=== PATIENT | male | born 1955 | race Hispanic/Latino ===

== ENCOUNTER → 2017-06-17 | Outpatient (CLI) | payer MEDICAID ==
[~2017-06-17] MED LIST: ASPI-555 PO; ATOR20TA65 PO; CLON1TAB5 PO; INSU3INS5 SQ; LISI10TA7 PO; METF500T6 PO; QUETIAPINE PO; TRAZ-187 PO; VENL225T3 PO
== END | disposition home or self-care (01) ==
LOC: RAH 09:06
PROVIDERS: ATTEND Internal Medicine Gastroenterology
DX: K80.20 Calculus of gallbladder without cholecystitis without obstruction (principal); K74.60 Unspecified cirrhosis of liver
CPT/HCPCS: 76700; 93975

== ENCOUNTER → 2017-07-20 | Outpatient (CLI) | payer MEDICAID | END | disposition home or self-care (01) | LOC: RAH 10:32 | PROVIDERS: ATTEND Internal Medicine Gastroenterology | DX: R13.10 Dysphagia, unspecified (principal); R13.0 Aphagia; E11.9 Type 2 diabetes mellitus without complications | CPT/HCPCS: 78264; A9541 ==

== ENCOUNTER 2017-08-31 21:35 | Emergency (ER) | payer MEDICAID ==
[2017-08-31 22:17] LABS: BASOPHILS % (AUTO) 0.5 % (0.0-5.0); EOSINOPHILS % (AUTO) 1.5 % (0.0-8.0); HEMATOCRIT 41.5 % (42-54); LYMPHOCYTES % (AUTO) 19.1 % (21.0-51.0); MEAN CORPUSCULAR HGB CONC 34.3 g/dL (32.0-36.0); MEAN CORPUSCULAR VOLUME 87.6 fL (79-99); MONOCYTES % (AUTO) 5.6 % (3.0-13.0); NEUTROPHILS % (AUTO) 73.3 % (40.0-77.0); PLATELET COUNT (AUTO) 127 K/uL (130-400); RED BLOOD CELL COUNT(AUTO) 4.74 MIL/uL (4.50-6.20); RED CELL DISTRIBUTION WIDTH 14.1 % (11.0-15.5); WHITE BLOOD COUNT (AUTO) 6.8 K/uL (4.8-10.8)
[2017-08-31 22:25] LABS: CARBON DIOXIDE 28 mmol/L (21-32); CHLORIDE 103 mmol/L (101-111); CREATININE 1.4 mg/dL (0.5-1.5); GLOMERULAR FILTR. RATE CALC 55 mL/min (>60); GLUCOSE,RANDOM 144 mg/dL (70-105); POTASSIUM 4.2 mmol/L (3.5-5.1); SODIUM SERUM 141 mmol/L (136-145); UREA NITROGEN, BLOOD 14 mg/dL (7-18)
[2017-08-31 22:37] LABS: ALANINE AMINOTRANSFERASE 57 U/L (12-78); ALBUMIN 4.2 g/dL (3.5-5.0); AMYLASE 108 U/L (25-115); ASPARTATE AMINOTRANSFERASE 40 U/L (10-37); BILIRUBIN,TOTAL 0.4 mg/dL (0.2-1.0); LIPASE 205 U/L (114-286); TOTAL PROTEIN, SERUM 8.8 g/dL (6.0-8.3)
[2017-08-31 22:40] LABS: ALCOHOL, BLOOD < 3 mg/dL (0-10)
[2017-08-31 22:58] LABS: INR 1.04 (0.85-1.15); PARTIAL THROMBOPLASTIN TIME 24.4 SEC (26.3-35.5); PROTHROMBIN TIME 10.9 SEC (9.6-11.6)
[2017-09-01 00:41] LABS: APPEARANCE,URINE Clear (CLEAR); BILIRUBIN,URINE Negative (NEGATIVE); COLOR,URINE Dark Yellow (YELLOW); GLUCOSE, URINE (UA) Negative (NEGATIVE); KETONES,URINE Trace mg/dL (NEGATIVE); LEUKOCYTE ESTERASE ,URINE Negative (NEGATIVE); NITRATE,URINE Negative (NEGATIVE); OCCULT BLOOD,URINE Negative (NEGATIVE); PROTEIN,URINE Negative (NEGATIVE); UROBILINOGEN,URINE 0.2 mg/dL (0.2-1.0)
[2017-09-01 00:48] LABS: AMPHET/METH SCREEN,URINE NEGATIVE (NEGATIVE); BARBITURATE SCREEN, URINE NEGATIVE (NEGATIVE); BENZODIAZEPINES SCREEN,URINE NEGATIVE (NEGATIVE); CANNABINOID SCREEN,URINE NEGATIVE (NEGATIVE); COCAINE SCREEN,URINE NEGATIVE (NEGATIVE); OPIATE SCREEN,URINE NEGATIVE (NEGATIVE); PHENCYCLIDINE SCREEN,URINE NEGATIVE (NEGATIVE)
[2017-09-01 02:41] LABS: CREATINE KINASE MB 4.2 ng/mL (0.5-3.6)
== END 2017-09-01 04:11 | disposition home or self-care (01) ==
LOC: EDH 21:35
DX: I10 Essential (primary) hypertension (principal); E11.9 Type 2 diabetes mellitus without complications; R11.2 Nausea with vomiting, unspecified; F32.9 Major depressive disorder, single episode, unspecified; K74.60 Unspecified cirrhosis of liver
CPT/HCPCS: 36415 ×2; 71045; 80053; 80305; 81003; 82150; 82550 ×2; 82553 ×2; 83690; 84484 ×2; 85025; 85610; 85730; 93005 ×2; 99285; G0480

== ENCOUNTER → 2017-11-23 | Outpatient (CLI) | payer MEDICAID ==
[~2017-11-23] MED LIST changes: +METF-444 PO; -METF500T6 PO
[2017-11-23 09:00] LABS: BASOPHILS % (AUTO) 0.9 % (0.0-5.0); EOSINOPHILS % (AUTO) 7.3 % (0.0-8.0); HEMATOCRIT 36.9 % (42-54); MEAN CORPUSCULAR HEMOGLOBIN 30.7 pg (27.0-33.0); MEAN CORPUSCULAR HGB CONC 34.5 g/dL (32.0-36.0); MONOCYTES % (AUTO) 8.7 % (3.0-13.0); NEUTROPHILS % (AUTO) 58.1 % (40.0-77.0); NUCLEATED RED BLOOD CELLS 0.1 % (0.0-0.19); PLATELET COUNT (AUTO) 104 K/uL (130-400); RED BLOOD CELL COUNT(AUTO) 4.14 MIL/uL (4.50-6.20); RED CELL DISTRIBUTION WIDTH 13.4 % (11.0-15.5); WHITE BLOOD COUNT (AUTO) 5.7 K/uL (4.8-10.8)
[2017-11-23 09:24] LABS: INR 1.04 (0.85-1.15); PROTHROMBIN TIME 10.9 SEC (9.6-11.6)
[2017-11-23 09:32] LABS: ALBUMIN 3.9 g/dL (3.5-5.0); BILIRUBIN,TOTAL 0.4 mg/dL (0.2-1.0); POTASSIUM 3.5 mmol/L (3.5-5.1); TOTAL PROTEIN, SERUM 7.6 g/dL (6.0-8.3)
== END | disposition home or self-care (01) ==
LOC: RAH 08:26
PROVIDERS: ATTEND Internal Medicine Gastroenterology
DX: K80.20 Calculus of gallbladder without cholecystitis without obstruction (principal); N28.1 Cyst of kidney, acquired
CPT/HCPCS: 36415; 76700; 80053; 82105; 85025; 85610

== ENCOUNTER 2018-02-16 05:45 | Day surgery (SDC) | payer MEDICAID ==
[~2018-02-16] VITALS: Ht 165.1 cm; Wt 83.9 kg
[~2018-02-16 05:45] MED LIST changes: +CLON1TAB12 PO; -CLON1TAB5 PO; +FISH1CAP27 PO; +MULT-1203 PO; +PANT40TA25 PO; -QUETIAPINE PO; +SODIUM CHLORIDE 0.9% 1000ML 1,000 ML IV ONE; -VENL225T3 PO
[2018-02-16 06:07] VITALS: BP 104/56
[2018-02-16] MEDS ORDERED: PROPOFOL 10 MG/ML 20ML VIAL IV ONE (07:30)
[2018-02-16 07:39] VITALS: BP 73/47
[2018-02-16 07:45] VITALS: BP 77/47
[2018-02-16 07:50] VITALS: BP 77/39
[2018-02-16 08:02] VITALS: BP 97/60
== END 2018-02-16 08:15 | disposition home or self-care (01) ==
LOC: ENDO 05:45 → DAH 05:45 → ENDO 08:15
PROVIDERS: ATTEND Internal Medicine
DX: K29.50 Unspecified chronic gastritis without bleeding (principal); K31.89 Other diseases of stomach and duodenum; F32.9 Major depressive disorder, single episode, unspecified; E11.9 Type 2 diabetes mellitus without complications; E78.5 Hyperlipidemia, unspecified; L40.9 Psoriasis, unspecified; Z98.890 Other specified postprocedural states; Z68.31 Body mass index [BMI] 31.0-31.9, adult; Z79.899 Other long term (current) drug therapy; K21.0 Gastro-esophageal reflux disease with esophagitis; K70.31 Alcoholic cirrhosis of liver with ascites; I12.9 Hypertensive chronic kidney disease with stage 1 through stage 4 chronic kidney disease, or unspecified chronic kidney disease; E11.22 Type 2 diabetes mellitus with diabetic chronic kidney disease; N18.9 Chronic kidney disease, unspecified; E66.9 Obesity, unspecified
CPT/HCPCS: 43239; 82948; 88305; 88312; A4606; J2704; J7030

== ENCOUNTER → 2018-06-29 | Outpatient (CLI) | payer MEDICAID ==
[~2018-06-29] MED LIST changes: -SODIUM CHLORIDE 0.9% 1000ML 1,000 ML IV ONE
[2018-06-29 08:37] LABS: BASOPHILS % (AUTO) 0.7 % (0.0-5.0); EOSINOPHILS % (AUTO) 7.3 % (0.0-8.0); HEMATOCRIT 38.3 % (42-54); LYMPHOCYTES % (AUTO) 30.3 % (21.0-51.0); MEAN CORPUSCULAR HEMOGLOBIN 30.7 pg (27.0-33.0); MEAN CORPUSCULAR HGB CONC 34.1 g/dL (32.0-36.0); MEAN CORPUSCULAR VOLUME 90.1 fL (79-99); MONOCYTES % (AUTO) 5.8 % (3.0-13.0); NEUTROPHILS % (AUTO) 55.9 % (40.0-77.0); NUCLEATED RED BLOOD CELLS 0.2 % (0.0-0.19); PLATELET COUNT (AUTO) 95 K/uL (130-400); RED BLOOD CELL COUNT(AUTO) 4.24 MIL/uL (4.50-6.20); RED CELL DISTRIBUTION WIDTH 13.3 % (11.0-15.5); WHITE BLOOD COUNT (AUTO) 4.5 K/uL (4.8-10.8)
[2018-06-29 08:51] LABS: INR 1.07 (0.85-1.15); PROTHROMBIN TIME 11.2 SEC (9.6-11.6)
[2018-06-29 08:59] LABS: BILIRUBIN,TOTAL 0.5 mg/dL (0.2-1.0); CREATININE 1.6 mg/dL (0.5-1.5); POTASSIUM 4.4 mmol/L (3.5-5.1); TOTAL PROTEIN, SERUM 7.8 g/dL (6.0-8.3)
== END | disposition home or self-care (01) ==
LOC: RAH 08:12
PROVIDERS: ATTEND Internal Medicine Gastroenterology
DX: K74.60 Unspecified cirrhosis of liver (principal); N28.1 Cyst of kidney, acquired; K80.20 Calculus of gallbladder without cholecystitis without obstruction
CPT/HCPCS: 36415; 76700; 80053; 82105; 85025; 85610

== ENCOUNTER 2018-12-21 19:41 | Emergency (ER) | payer MEDICAID ==
[2018-12-21 20:02] LABS: BASOPHILS % (AUTO) 0.8 % (0.0-5.0); HEMATOCRIT 38.4 % (42-54); LYMPHOCYTES % (AUTO) 32.3 % (21.0-51.0); MEAN CORPUSCULAR HEMOGLOBIN 30.6 pg (27.0-33.0); MEAN CORPUSCULAR HGB CONC 34.3 g/dL (32.0-36.0); MONOCYTES % (AUTO) 7.7 % (3.0-13.0); NEUTROPHILS % (AUTO) 55.2 % (40.0-77.0); PLATELET COUNT (AUTO) 128 K/uL (130-400); RED BLOOD CELL COUNT(AUTO) 4.32 MIL/uL (4.50-6.20); RED CELL DISTRIBUTION WIDTH 13.5 % (11.0-15.5); WHITE BLOOD COUNT (AUTO) 5.2 K/uL (4.8-10.8)
[2018-12-21 20:12] LABS: CREATININE 1.5 mg/dL (0.5-1.5); POTASSIUM 4.2 mmol/L (3.5-5.1)
[2018-12-21 20:17] LABS: ALBUMIN 3.8 g/dL (3.5-5.0); BILIRUBIN,TOTAL 0.4 mg/dL (0.2-1.0)
[2018-12-21 20:18] LABS: ACETAMINOPHEN < 1 mcg/mL (10-29); ALCOHOL, BLOOD < 3 mg/dL (0-10); SALICYLATE < 2.8 mg/dL (2.8-20.0)
[2018-12-21] MEDS ORDERED: ACETAMINOPHEN 325 MG TAB ONE (22:46)
== END 2018-12-22 00:15 | disposition home or self-care (01) ==
LOC: EDH 19:41
DX: T51.91XA Toxic effect of unspecified alcohol, accidental (unintentional), initial encounter (principal); K74.60 Unspecified cirrhosis of liver; F32.9 Major depressive disorder, single episode, unspecified; E11.9 Type 2 diabetes mellitus without complications; I10 Essential (primary) hypertension; Z79.4 Long term (current) use of insulin; Y92.096 Garden or yard of other non-institutional residence as the place of occurrence of the external cause
CPT/HCPCS: 36415; 80053; 85025; 93005; 99285; G0480 ×2; G0481

== ENCOUNTER 2019-02-23 09:57 | Emergency (ER) | payer MEDICAID ==
[2019-02-23] MEDS ORDERED: KETOROLAC TROMETHAMINE 30MG/ML ONE (10:10)
[2019-02-23] MEDS ORDERED: DIAZEPAM 5 MG TABLET ONE (10:11)
== END 2019-02-23 13:25 | disposition home or self-care (01) ==
LOC: EDH 09:57
DX: S16.1XXA Strain of muscle, fascia and tendon at neck level, initial encounter (principal); F32.9 Major depressive disorder, single episode, unspecified; E11.9 Type 2 diabetes mellitus without complications; K74.60 Unspecified cirrhosis of liver; I10 Essential (primary) hypertension; Z79.4 Long term (current) use of insulin; V49.40XA Driver injured in collision with unspecified motor vehicles in traffic accident, initial encounter; Y93.89 Activity, other specified; Y92.89 Other specified places as the place of occurrence of the external cause; Y99.8 Other external cause status
CPT/HCPCS: 70450; 71045; 72125; 72192; 96374; 99284; J1885; 96372

== ENCOUNTER 2020-01-21 09:53 | Emergency (ER) | payer MEDICAID ==
[~2020-01-21 09:53] MED LIST changes: -ASPI-555 PO; +ASPI-556 PO; -PANT40TA25 PO; +PANT40TA54 PO
[2020-01-21] MEDS ORDERED: LIDOCAINE HCL MPF 1% 5ML VIAL ONE (12:50)
== END 2020-01-21 14:22 | disposition home or self-care (01) ==
LOC: EDH 09:53
DX: S61.512A Laceration without foreign body of left wrist, initial encounter (principal); E11.9 Type 2 diabetes mellitus without complications; I10 Essential (primary) hypertension; W26.0XXA Contact with knife, initial encounter; Y93.89 Activity, other specified; Y92.89 Other specified places as the place of occurrence of the external cause; Y99.8 Other external cause status
CPT/HCPCS: 12032; 99284; J3490; 12042

== ENCOUNTER 2022-07-28 07:49 | Emergency (ER) | payer OTHER, MEDICARE ==
[~2022-07-28] VITALS: Ht 165.1 cm; Wt 70.3 kg
[~2022-07-28 07:49] MED LIST changes: -ASPI-556 PO; -ATOR20TA65 PO; +ATOR40TA69 PO; -CLON1TAB12 PO; -FISH1CAP27 PO; +INSU100I13 SQ; +INSU100I54 SQ; -INSU3INS5 SQ; +LAMO150T6 PO; +LISI10TA24 PO; -LISI10TA7 PO; -MULT-1203 PO; -PANT40TA54 PO; +QUET300T2 PO; -TRAZ-187 PO; +VANCO125PO PO
[2022-07-28 08:20] LABS: BASOPHILS % (AUTO) 0.5 % (0.0-5.0); EOSINOPHILS % (AUTO) 3.3 % (0.0-8.0); HEMATOCRIT 34.8 % (42-54); LYMPHOCYTES % (AUTO) 33.6 % (21.0-51.0); MEAN CORPUSCULAR HEMOGLOBIN 30.4 pg (27.0-33.0); MEAN CORPUSCULAR HGB CONC 33.6 g/dL (32.0-36.0); MEAN CORPUSCULAR VOLUME 90.4 fL (79-99); MONOCYTES % (AUTO) 9.7 % (3.0-13.0); NEUTROPHILS % (AUTO) 52.4 % (40.0-77.0); PLATELET COUNT (AUTO) 91 K/uL (130-400); RED BLOOD CELL COUNT(AUTO) 3.85 MIL/uL (4.50-6.20); RED CELL DISTRIBUTION WIDTH 12.1 % (11.0-15.5); WHITE BLOOD COUNT (AUTO) 5.7 K/uL (4.8-10.8)
[2022-07-28 08:29] LABS: CREATININE 1.2 mg/dL (0.5-1.5); POTASSIUM 3.8 mmol/L (3.5-5.1)
[2022-07-28 08:43] LABS: ALBUMIN 3.5 g/dL (3.5-5.0); TOTAL PROTEIN, SERUM 6.5 g/dL (6.0-8.3)
[2022-07-28] MEDS ORDERED: IOHEXOL-350 75 ML VIAL IV ONE (10:58)
[2022-07-28] MEDS ORDERED: ACETAMINOPHEN 325 MG TAB PO ONE (11:00)
[2022-07-28] MEDS ORDERED: LIDOCAINE 5% TOPICAL PATCH TP ONE (11:00)
[2022-07-28 11:27] LABS: APPEARANCE,URINE CLEAR (CLEAR); BILIRUBIN,URINE NEGATIVE (NEGATIVE); COLOR,URINE YELLOW (YELLOW); GLUCOSE, URINE (UA) 70 mg/dL (NEGATIVE); KETONES,URINE NEGATIVE (NEGATIVE); LEUKOCYTE ESTERASE ,URINE NEGATIVE Leu/uL (NEGATIVE); NITRATE,URINE NEGATIVE (NEGATIVE); OCCULT BLOOD,URINE NEGATIVE (NEGATIVE); PH,URINE 5.5 (5.0-8.0); PROTEIN,URINE NEGATIVE (NEGATIVE); UROBILINOGEN,URINE 0.2 mg/dL (0.2-1.0)
[2022-07-28 11:36] LABS: SQUAMOUS EPITHELIAL CELL,UR RARE /HPF (0-2)
[2022-07-28] MEDS ORDERED: LIDOP TD (13:03)
[2022-07-28 13:40] VITALS: BP 132/72
== END 2022-07-28 13:50 | disposition home or self-care (01) ==
LOC: EDH 07:49
DX: S20.212A Contusion of left front wall of thorax, initial encounter (principal); K74.60 Unspecified cirrhosis of liver; E86.0 Dehydration; E11.65 Type 2 diabetes mellitus with hyperglycemia; E78.00 Pure hypercholesterolemia, unspecified; I10 Essential (primary) hypertension; Z79.899 Other long term (current) drug therapy; W18.39XA Other fall on same level, initial encounter; Y93.89 Activity, other specified; Y92.89 Other specified places as the place of occurrence of the external cause; Y99.8 Other external cause status
CPT/HCPCS: 99285; 70450; 71045; 84484; 80053; 82140; 85025; 81001; 36415; 71100; 73030; 74177; 93005; Q9967

== ENCOUNTER 2022-12-26 09:21 | Emergency (ER) | payer OTHER, MEDICARE ==
[~2022-12-26] VITALS: Ht 162.6 cm; Wt 81.6 kg
[~2022-12-26 09:21] MED LIST changes: +LIDOP TD
[2022-12-26] MEDS ORDERED: KETOROLAC 60 MG VIAL (30MG/ML) IM ONE (09:36)
[2022-12-26] MEDS ORDERED: KETOROLAC 30MG VIAL (30MG/ML) IVP ONE (10:00)
[2022-12-26 11:09] VITALS: BP 121/60; PULSE 60; RESP 18; O2SAT 96
== END 2022-12-26 11:20 | disposition home or self-care (01) ==
LOC: EDH 09:21
DX: S80.12XA Contusion of left lower leg, initial encounter (principal); S40.012A Contusion of left shoulder, initial encounter; I10 Essential (primary) hypertension; E11.9 Type 2 diabetes mellitus without complications; Z79.84 Long term (current) use of oral hypoglycemic drugs; Z79.899 Other long term (current) drug therapy; Z98.890 Other specified postprocedural states; V89.2XXA Person injured in unspecified motor-vehicle accident, traffic, initial encounter; Y93.I9 Activity, other involving external motion; Y92.488 Other paved roadways as the place of occurrence of the external cause; Y99.8 Other external cause status
CPT/HCPCS: 99284; 96374; 71045; 73552; 72170; 73030; J1885

== ENCOUNTER 2023-03-17 16:18 | Emergency (ER) | payer MEDICARE, OTHER ==
[~2023-03-17] VITALS: Ht 162.6 cm; Wt 81.6 kg
[2023-03-17 17:50] VITALS: BP 149/70; PULSE 69; RESP 20
[2023-03-17] MEDS ORDERED: IBUPROFEN 600 MG TABLET PO ONE (18:00)
[2023-03-17] MEDS ORDERED: IBUP-2070 PO (20:28)
[2023-03-17] MEDS ORDERED: CEPH500B PO (20:28)
[2023-03-17] MEDS ORDERED: CEPHALEXIN 500 MG CAPSULE PO ONE (20:30)
[2023-03-17] MEDS ORDERED: TETANUS/DIPHTHERIA TOXOID [ADULT] 0.5 ML VIAL IM ONE (20:30)
== END 2023-03-18 01:08 | disposition home or self-care (01) ==
LOC: EDH 16:18
DX: S62.667B Nondisplaced fracture of distal phalanx of left little finger, initial encounter for open fracture (principal); E11.9 Type 2 diabetes mellitus without complications; I10 Essential (primary) hypertension; Z79.899 Other long term (current) drug therapy; X58.XXXA Exposure to other specified factors, initial encounter; Y93.89 Activity, other specified; Y92.89 Other specified places as the place of occurrence of the external cause; Y99.8 Other external cause status
CPT/HCPCS: 12001; 29130; 73130

== ENCOUNTER → 2023-04-09 | Outpatient (CLI) | payer OTHER ==
[~2023-04-09] MED LIST changes: +CEPH500B PO; +IBUP-2070 PO; +LIDOCAINE HCL 4% LTA SOL 4 ML VIAL TP ONE
== END | disposition home or self-care (01) ==
LOC: WHH 09:33
PROVIDERS: ATTEND Nurse Practitioner Family
DX: S61.307A Unspecified open wound of left little finger with damage to nail, initial encounter (principal); S62.637A Displaced fracture of distal phalanx of left little finger, initial encounter for closed fracture; E11.52 Type 2 diabetes mellitus with diabetic peripheral angiopathy with gangrene; I96 Gangrene, not elsewhere classified; I10 Essential (primary) hypertension; E78.5 Hyperlipidemia, unspecified; M79.642 Pain in left hand; F32.A Depression, unspecified; Z79.899 Other long term (current) drug therapy; X58.XXXA Exposure to other specified factors, initial encounter; Y93.89 Activity, other specified; Y92.89 Other specified places as the place of occurrence of the external cause; Y99.8 Other external cause status
CPT/HCPCS: G0463; A4450

== ENCOUNTER → 2023-04-23 | Outpatient (CLI) | payer OTHER | END | disposition home or self-care (01) | LOC: WHH 09:07 | PROVIDERS: ATTEND Nurse Practitioner Family | DX: S61.307D Unspecified open wound of left little finger with damage to nail, subsequent encounter (principal); S62.637D Displaced fracture of distal phalanx of left little finger, subsequent encounter for fracture with routine healing; E11.622 Type 2 diabetes mellitus with other skin ulcer; L98.491 Non-pressure chronic ulcer of skin of other sites limited to breakdown of skin; E11.52 Type 2 diabetes mellitus with diabetic peripheral angiopathy with gangrene; I96 Gangrene, not elsewhere classified; I10 Essential (primary) hypertension; E78.5 Hyperlipidemia, unspecified; M79.642 Pain in left hand; H91.90 Unspecified hearing loss, unspecified ear; F32.A Depression, unspecified; Z79.899 Other long term (current) drug therapy; X58.XXXD Exposure to other specified factors, subsequent encounter | CPT/HCPCS: G0463 ==

== ENCOUNTER → 2023-04-30 | Outpatient (CLI) | payer OTHER ==
[~2023-04-30] MED LIST changes: -LIDOCAINE HCL 4% LTA SOL 4 ML VIAL TP ONE
== END | disposition home or self-care (01) ==
LOC: WHH 09:54
PROVIDERS: ATTEND Nurse Practitioner Family
DX: S61.307D Unspecified open wound of left little finger with damage to nail, subsequent encounter (principal); S62.637D Displaced fracture of distal phalanx of left little finger, subsequent encounter for fracture with routine healing; E11.622 Type 2 diabetes mellitus with other skin ulcer; L98.491 Non-pressure chronic ulcer of skin of other sites limited to breakdown of skin; E11.52 Type 2 diabetes mellitus with diabetic peripheral angiopathy with gangrene; I96 Gangrene, not elsewhere classified; I10 Essential (primary) hypertension; E78.5 Hyperlipidemia, unspecified; H91.90 Unspecified hearing loss, unspecified ear; M79.642 Pain in left hand; F32.A Depression, unspecified; Z79.899 Other long term (current) drug therapy; X78.8XXD Intentional self-harm by other sharp object, subsequent encounter
CPT/HCPCS: G0463

== ENCOUNTER → 2023-05-14 | Outpatient (CLI) | payer OTHER | END | disposition home or self-care (01) | LOC: WHH 10:12 | PROVIDERS: ATTEND Nurse Practitioner Family | DX: S61.307D Unspecified open wound of left little finger with damage to nail, subsequent encounter (principal); S62.637D Displaced fracture of distal phalanx of left little finger, subsequent encounter for fracture with routine healing; E11.622 Type 2 diabetes mellitus with other skin ulcer; L98.491 Non-pressure chronic ulcer of skin of other sites limited to breakdown of skin; E11.52 Type 2 diabetes mellitus with diabetic peripheral angiopathy with gangrene; I96 Gangrene, not elsewhere classified; I10 Essential (primary) hypertension; E78.5 Hyperlipidemia, unspecified; H91.90 Unspecified hearing loss, unspecified ear; M79.642 Pain in left hand; F32.A Depression, unspecified; Z79.899 Other long term (current) drug therapy; X78.8XXD Intentional self-harm by other sharp object, subsequent encounter | CPT/HCPCS: G0463 ==

== ENCOUNTER → 2023-05-15 | Outpatient (CLI) | payer OTHER | END | disposition home or self-care (01) | LOC: RAH 09:32 | PROVIDERS: ATTEND Nurse Practitioner Family | DX: S61.301A Unspecified open wound of left index finger with damage to nail, initial encounter (principal); M86.8X4 Other osteomyelitis, hand; X58.XXXA Exposure to other specified factors, initial encounter; Y93.89 Activity, other specified; Y92.89 Other specified places as the place of occurrence of the external cause; Y99.8 Other external cause status | CPT/HCPCS: 73218 ==

== ENCOUNTER 2024-10-27 19:23 | Emergency (ER) | payer OTHER, MEDICARE ==
[~2024-10-27] VITALS: Ht 160 cm; Wt 81.6 kg
[~2024-10-27 19:23] MED LIST changes: +IBUP-1492 PO; -IBUP-2070 PO
--- NOTE | 2024-10-27 19:27 | NUR ---
UA CUP PROVIDED
--- NOTE | 2024-10-27 19:59 | EKG ---
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
[2024-10-27 20:15] LABS: IMMATURE GRANULOCYTE ABSOLUTE 0.02 K/uL (0-1); NUCLEATED RED BLOOD CELLS 0.0 % (0.0-0.19); PLATELET COUNT (AUTO) 136 K/uL (130-400); RED BLOOD CELL COUNT(AUTO) 4.46 MIL/uL (4.50-6.20); RED CELL DISTRIBUTION WIDTH 12.5 % (11.0-15.5); WHITE BLOOD COUNT (AUTO) 4.9 K/uL (4.8-10.8)
[2024-10-27 20:25] LABS: CREATININE 1.2 mg/dL (0.5-1.3); GLOMERULAR FILTR. RATE CALC 66 mL/min (>90); GLUCOSE,RANDOM 175 mg/dL (70-105); SODIUM SERUM 140 mmol/L (136-145); UREA NITROGEN, BLOOD 41 mg/dL (7-18)
[2024-10-27 20:50] LABS: CREATINE KINASE, TOTAL 1380 U/L (21-232)
--- NOTE | 2024-10-27 21:56 | NUR ---
BLADDER SCAN POST VOID 24CC, MD AWARE
[2024-10-27 22:02] LABS: APPEARANCE,URINE CLEAR (CLEAR); GLUCOSE, URINE (UA) NEGATIVE (NEGATIVE); LEUKOCYTE ESTERASE ,URINE NEGATIVE Leu/uL (NEGATIVE); NITRATE,URINE NEGATIVE (NEGATIVE); OCCULT BLOOD,URINE NEGATIVE (NEGATIVE)
[2024-10-27 22:05] LABS: ADD UA MICROSCOPIC NO
[2024-10-27 22:06] LABS: SQUAMOUS EPITHELIAL CELL,UR RARE /HPF (0-2)
[2024-10-27] MEDS: 0.9% NACL 250ML 250 ML IV SCH (22:07)
--- NOTE | 2024-10-27 22:12 | ERN ---
ED Note History of Present Illness Stated Complaint: URINARY RETENTION, VOMITING Chief Complaint: Multiple Complaints Time Seen by MD: 19:27 Dictation: This is a 69-year-old male who presented to the emergency room complaining of bloating and emesis. Apparently patient began experiencing bloating since 10/26/2024 and yesterday he stayed outside all day and he started vomitings today so far had 2 episodes. No abdominal pain no diarrhea no fever chills or rigors. Although he complained of urinary retention initially he voided without any difficulty. Post vital bladder scan at bedside showed only 20 cc of urine. No hematuria dysuria. Patient and daughter denied any alcohol intake and he has been sober for more than 5 years. No travel no other sick contacts. Temperature 98.3 pulse 83 respirations 18 blood pressure 120/70 with a pulse oximetry of 97% on room air Chronic medical problems include diabetes mellitus, hypercholesterolemia, hypertension and cirrhosis of the liver Allergies: Coded Allergies: No Known Drug Allergies (Verified Allergy, Unknown, 12/26/15) Home Meds Active Scripts Ibuprofen (Ibuprofen) 600 Mg Tablet, 600 MG PO Q6H PRN for PAIN, #30 TAB Prov:JENNIFER COOK AUT[employer] CLUTCH REBUILDER 03/17/23 Cephalexin Monohydrate (Keflex) 500 Mg Cap, 500 MG PO TID for 5 Days, #15 CAP Prov:JENNIFER COOK AUT[employer] CLUTCH REBUILDER 03/17/23 Lidocaine (Lidoderm Patch 5%) 1 Patch Patch, 1 PATCH TD DAILY for 30 Days, #30 ADH.PATCH 0 Refills Prov:STEVIE TORRES MD 07/28/22 Vancomycin HCl (Vancocin Oral Soln 125 mg) 50 Mg/Ml Soln, 125 MG PO Q6H for 3 Days, #1500 ML 0 Refills Prov:KEREN HINES MD 12/01/21 Reported Medications Insulin NPL/Insulin Lispro (Humalog Mix 75-25 Kwikpen) 100 Unit/1 Ml Insuln.pen, 12 UNITS SQ DAILYDINNER 11/28/21 Insulin Lispro Protamin/Lispro (Insulin Lispro Mix 75-25 Kwkpn) 100 Unit/1 Ml Insuln.pen, 25 UNIT SQ DAILYBKFST 11/28/21 Atorvastatin Calcium (LIPITOR) 40 Mg Tablet, 40 MG PO DAILY, TAB 9/16/22 Lamotrigine (Lamotrigine) 150 Mg Tablet, 300 MG PO DAILY, TAB 11/22/21 Quetiapine Fumarate (Seroquel) 300 Mg Tab, 300 MG PO HS, TAB 11/22/21 Lisinopril (Lisinopril) 10 Mg Tablet, 10 MG PO AM, TAB 12/26/15 Metformin HCl (Metformin HCl) 500 Mg Tablet, 500 MG PO BIDAC, TAB 12/26/15 Past Medical History Past Medical History: Diabetes-Type II, High Cholesterol, Hypertension Additional Past Medical Hx: CHIRROSIS, SEPSIS Surgical History: Other Surgical History Other: RIGHT SHOULDER Family History: Negative Social History: Negative, Lives with family RN Note Reviewed/Agreed w/PFSH: Yes Review of System Dictation Constitutional: Negative for fever,chills, and weight loss Eyes: Negative for injury, pain,redness, and discharge ENT: Negative for injury,pain or swelling Cardiovascular: Negative for chest pain, palpitations, and edema Respiratory: Negative for shortness of breath, cough, and wheezing, Abdomen/GI: Negative for abdominal pain, nausea, positive for vomiting, denied diarrhea, and constipation Back: Negative for injury and pain : Negative for injury, bleeding and discharge positive for urinary difficulty MS/Extremity: Negative for injury and deformity Skin: Negative for rash, and discoloration Neuro: Negative for headache, weakness, numbness, tingling, and seizure Psych: Negative for suicide ideation, homicidal ideation, and hallucinations Initial Vital Sign VS Vital Signs Date Time Temp Pulse Resp B/P (MAP) Pulse Ox O2 Delivery O2 Flow Rate FiO2 10/27/24 19:25 98.2 83 18 120/70 97 Room Air 10/27/24 21:40 0 21 Physical Exam Dictation General: awake, alert, NAD Head/Face: Normocephalic, atraumatic Eyes: PERRL, EOMI, vision at baseline ENT: oral cavity clear, TMs clear, no signs of infection Neck: Trachea midline, supple, no nuchal rigidity Cardiovascular: RRR, normal S1/S2, No MRGs, no JVD Respiratory: CTAB, no respiratory distress, No rales or wheezes Abdomen: Soft, non-tender, non-distended, normal bowel sounds, no guarding or rebound. Skin: Warm, dry, normal turgor, no rash MS/Extremity: Pulses equal, no cyanosis, neurovascular intact, FROM Neuro: COAx4, GCS 15, strength 5/5, CN 2-12 intact, normal cerebellar exam, normal gait, Psych: Normal behavior, mood, and affect normal Extremities-trace edema without any palpable cords, Homans sign is negative Results (Laboratory/Radiology) Laboratory/Radiology Laboratory Tests Test 10/27/24 20:05 10/27/24 21:43 White Blood Count 4.9 K/uL (4.8-10.8) Red Blood Count 4.46 MIL/uL (4.50-6.20) L Hemoglobin 13.2 g/dL (14.0-18.0) L Hematocrit 38.4 % (42-54) L Mean Corpuscular Volume 86.1 fL (79-99) Mean Corpuscular Hemoglobin 29.6 pg (27.0-33.0) Mean Corpuscular Hemoglobin Concent 34.4 g/dL (32.0-36.0) Red Cell Distribution Width 12.5 % (11.0-15.5) Platelet Count 136 K/uL (130-400) Mean Platelet Volume 10.2 fL (7.5-10.5) Immature Granulocyte % (Auto) 0.4 % (0-1) Neutrophils (%) (Auto) 70.4 % (40.0-77.0) Lymphocytes (%) (Auto) 17.0 % (21.0-51.0) L Monocytes (%) (Auto) 10.4 % (3.0-13.0) Eosinophils (%) (Auto) 1.4 % (0.0-8.0) Basophils (%) (Auto) 0.4 % (0.0-5.0) Neutrophils # (Auto) 3.4 K/uL (1.8-7.7) Lymphocytes # (Auto) 0.8 K/uL (1.0-4.8) L Monocytes # (Auto) 0.5 K/uL (0.1-1.0) Eosinophils # (Auto) 0.07 K/uL (0.00-0.70) Basophils # (Auto) 0.02 K/uL (0.00-0.20) Absolute Immature Granulocyte (auto 0.02 K/uL (0-1) Nucleated Red Blood Cells 0.0 % (0.0-0.19) Sodium Level 140 mmol/L (136-145) Potassium Level 3.4 mmol/L (3.5-5.1) L Chloride Level 102 mmol/L (101-111) Carbon Dioxide Level 33 mmol/L (21-32) H Blood Urea Nitrogen 41 mg/dL (7-18) H Creatinine 1.2 mg/dL (0.5-1.3) Glomerular Filtration Rate Calc 66 mL/min (>90) Random Glucose 175 mg/dL (70-105) H Total Calcium 8.6 mg/dL (8.5-10.1) Ammonia < 10 umol/L (11-32) L Total Creatine Kinase 1380 U/L (21-232) #*H Troponin I High Sensitivity 11 ng/L (4-75) Lipase 190 U/L (16-77) H Urine Color YELLOW (YELLOW) Urine Appearance CLEAR (CLEAR) Urine pH 5.5 (5.0-8.0) Urine Specific [place] 1.029 (1.001-1.031) Urine Protein 10 mg/dL (NEGATIVE) H Urine Glucose (UA) NEGATIVE mg/dL (NEGATIVE) Urine Ketones NEGATIVE mg/dL (NEGATIVE) Urine Occult Blood NEGATIVE (NEGATIVE) Urine Nitrate NEGATIVE (NEGATIVE) Urine Bilirubin NEGATIVE mg/dL (NEGATIVE) Urine Urobilinogen 0.2 mg/dL (0.2-1.0) Urine Leukocyte Esterase NEGATIVE Laila/uL Urine RBC 2-5 /HPF (0-1) H Urine WBC 0-1 /HPF (0-1) Urine Squamous Epithelial Cells RARE /HPF (0-2) Urine Bacteria None /HPF (None Seen) Urine Hyaline Casts 2-5 /LPF (0-1 /LPF) H Labs Reviewed?: Yes ED Course ED Course Orders Procedure Category Date Status Time Cbc With Differential LAB 10/27/24 Complete 19:27 Basic Metabolic Panel LAB 10/27/24 Complete 19:27 Troponin I High LAB 10/27/24 Complete Sensitivity 19:27 Creatine Kinase, Total LAB 10/27/24 Complete 19:27 12 Lead Ekg Tracing- EKG 10/27/24 Complete Technical 19:27 Urinalysis Profile LAB 10/27/24 Complete 19:27 Bladder Scan CPOE 10/27/24 Transmitted 19:34 Ondansetron 4mg Inj PHA 10/27/24 In Process (Zofran 4mg Inj) 20:00 0.9% Nacl 250ml (Ns PHA 10/27/24 In Process 250ml) 20:00 Ammonia LAB 10/27/24 Complete 20:05 Lipase LAB 10/27/24 Complete 20:05 0.9% Nacl 500ml PHA 10/27/24 In Process Iv.Soln (Ns 500ml 22:30 Potassium Bicarb/Cit PHA 10/27/24 Complete Ac 25meq (K-Lyte Ta 23:00 Current Medications Medications (Trade) Dose Ordered Sig/Venkat Route PRN Reason Start Time Stop Time Status Last Admin Dose Admin Ondansetron HCl (zoFRAN 4MG INJ) 4 mg ONCE IVP 10/27/24 20:00 10/27/24 23:59 10/27/24 22:06 Potassium Bicarbonate (K-Lyte Tablet Eff 25 Meq Tablet.eff) 25 meq ONCE ONCE PO 10/27/24 23:00 10/27/24 23:01 DC 10/27/24 23:01 Sodium Chloride 250 ml @ 0 mls/hr ONCE IV 10/27/24 20:00 10/28/24 19:59 10/27/24 22:07 Sodium Chloride 500 ml @ 0 mls/hr Q0M IV 10/27/24 22:30 11/26/24 22:29 10/27/24 22:21 Vital Signs Date Time Temp Pulse Resp B/P (MAP) Pulse Ox O2 Delivery O2 Flow Rate FiO2 10/27/24 21:40 98.2 83 18 120/70 97 Room Air* 0 21 10/27/24 19:25 98.2 83 18 120/70 97 Room Air We will perform diagnostic labs, and administer medications according to the patient's complaint. Once the results are available, will review and personally interpreted the labs to rule out any acute life-threatening emergency the trach require immediate intervention and treatment. I will then re-evaluate the patient after treatment and diagnostic exams have return to determine whether the patient requires any further testing, can safely be discharged home or need further admission to hospital for additional treatment and evaluation. Labs reviewed CBC is with a normal limits BNP 7 is significant for a potassium of 3.4 BUN and creatinine are 41 and 1.2 with a glucose of 175 lipase is 190 total CK 1380. Medical Decision Making MDM Differential diagnosis: Heat stroke, heat exhaustion, viral syndrome, sepsis with a UTI, gastroenteritis Rationale: Tests considered and ordered secondary to shared decision making include: Previous outside records reviewed: Old ER visits. Risk of complication and/or morbidity or mortality of patient management: None Medications-Per medication reconciliation Need for hospitalization: Patient does not meet criteria for hospitalization. Need for emergency major/minor surgery: No There are no social concerns with this patient. Prescription drug management Prescriptions will include symptomatic care Patient's prior external medical records from other ER visits were reviewed by me as indicated. Prior testing and results from previous visits were reviewed. Prior tests were taken into account with medical decision making and resource utilization, independent historian/historians were used to obtain complete m edical history. I independently interpreted the test that were performed, results were reviewed by me and considered findings on radiology if ordered. Medical management and examination interpretation discussions were had by me with other qualified healthcare professionals as indicated for the patient's care. DX & DISP Disposition: Discharge Departure Impression: Primary Impression: Exertional heat stroke Additional Impressions: Mild dehydration, Non-traumatic rhabdomyolysis, Acute kidney injury, Hypokalemia, Cirrhosis of liver, Hyperglycemia due to diabetes mellitus, Pancreatitis Condition: Stable Additional Instructions: Patient and the caregiver have been informed of all the diagnostic tests and the imaging conducted during the today's visit to the emergency room and has verbalized understanding of the results I have personally reviewed and inter preted all diagnostic exams performed here in the ER today as well as the vital signs documented by the nursing staff. The patient is now being discharged to home and should follow up with the primary care physician or the specialist as directed by the ER staff. Follow-up with primary care provider in 1 to 2 days. Take medications as directed here in the emergency room. Okay to continue home medications unless otherwise discussed during your visit in the emergency room today. Return to your nearest emergency room if symptoms worsen or if there is no improvement. Call 911 if you need immediate assistance. Take Tylenol or Motrin [id number] as needed and if no contraindications are present. Increase oral hydration. A wound culture or urine culture was ordered here in the emergency room department please follow-up with primary care provider and advise them to get repeat ports from our facility. If you had any Mahin wrap/splints that were applied here, please do not remove them until you see your primary care or specialty. Counseled on aggressive hydration patient and daughter verbalized that they have Powerade Gatorade and that they will continue aggressive fluids at home Referrals: DEON LIU MD (PCP) MONICA THOMAS MD Oct 27, 2024 22:12
[2024-10-27] MEDS: 0.9% NACL 500ML IV.SOLN 500 ML IV SCH (22:21)
[2024-10-27 23:47] VITALS: BP 124/73; PULSE 80; RESP 18; TEMP 97.8; O2SAT 97
== END 2024-10-27 23:48 | disposition home or self-care (01) ==
LOC: EDH 19:23
DX: T67.02XA Exertional heatstroke, initial encounter (principal); E86.0 Dehydration; M62.82 Rhabdomyolysis; E87.6 Hypokalemia; N17.9 Acute kidney failure, unspecified; E11.65 Type 2 diabetes mellitus with hyperglycemia; K85.90 Acute pancreatitis without necrosis or infection, unspecified; E78.00 Pure hypercholesterolemia, unspecified; I10 Essential (primary) hypertension; Z79.899 Other long term (current) drug therapy
CPT/HCPCS: 99284; 96374; 51798; 82550; 84484; 80048; 82140; 83690; 85025; 81003; 36415; 93005; J7040; J2405; J7050

== ENCOUNTER 2024-11-08 13:01 | Emergency (ER) | payer OTHER, MEDICARE ==
[~2024-11-08] VITALS: Ht 162.6 cm; Wt 81.6 kg
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
[2024-11-08] MEDS ORDERED: BACL10TA PO (15:18)
[2024-11-08] MEDS ORDERED: KETO10TA2 PO (15:18)
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
[2024-11-08 15:36] VITALS: BP 115/84; PULSE 65; RESP 18; TEMP 98.6; O2SAT 97
== END 2024-11-08 15:37 | disposition home or self-care (01) ==
LOC: EDH 13:01
DX: S16.1XXA Strain of muscle, fascia and tendon at neck level, initial encounter (principal); E10.9 Type 1 diabetes mellitus without complications; I10 Essential (primary) hypertension; Z79.899 Other long term (current) drug therapy; V89.2XXA Person injured in unspecified motor-vehicle accident, traffic, initial encounter; Y93.89 Activity, other specified; Y92.89 Other specified places as the place of occurrence of the external cause; Y99.8 Other external cause status
CPT/HCPCS: 70450; 72125; 72128; 72131; 99284

== ENCOUNTER 2025-02-28 19:49 | Observation (INO) | payer OTHER, MEDICARE ==
[~2025-02-28] VITALS: Ht 157.5 cm; Wt 84.7 kg
[~2025-02-28 19:49] MED LIST changes: +BACL10TA PO; +KETO10TA2 PO
[2025-02-28 21:16] LABS: IMMATURE GRANULOCYTE ABSOLUTE 0.02 K/uL (0-1); NUCLEATED RED BLOOD CELLS 0.0 % (0.0-0.19); PLATELET COUNT (AUTO) 209 K/uL (130-400); RED BLOOD CELL COUNT(AUTO) 2.59 MIL/uL (4.50-6.20); RED CELL DISTRIBUTION WIDTH 13.6 % (11.0-15.5); WHITE BLOOD COUNT (AUTO) 6.3 K/uL (4.8-10.8)
[2025-02-28 21:24] LABS: CREATININE 1.3 mg/dL (0.5-1.3); GLOMERULAR FILTR. RATE CALC 59.0 mL/min (>90); GLUCOSE,RANDOM 231.0 mg/dL (70-105); SODIUM SERUM 140.0 mmol/L (136-145); UREA NITROGEN, BLOOD 22.0 mg/dL (7-18)
[2025-02-28 21:29] LABS: CREATINE KINASE, TOTAL 143.0 U/L (21-232)
--- NOTE | 2025-02-28 21:46 | ERN ---
ED Note History of Present Illness Stated Complaint: CHEST PAIN, AND SOB ON EXERTION APPROX A WEEK AGO. Chief Complaint: Chest Pain Time Seen by MD: 20:00 Dictation: This is a 70-year-old obese male who presented to the emergency room as a referral from Dr. Martinez's office to be evaluated for increased D-dimers and some shortness of breath. The patient underwent a right total shoulder arthroplasty on 02/17/2025 at [facility] by Dr. Steen. He had a follow- up appointment with Dr. Martinez today and reported to him that he was a little short of breath for the past 1 week and nonspecific chest discomfort. The daughter who was at bedside also reported that after patient received Tylenol No. 3 for his right shoulder pain he could not sleep and became extremely confused every single time. He stopped giving the pain medication for his right shoulder. No fever chills or rigors Temperature 98.5 pulse 79 respirations 18 blood pressure 128/61 with a pulse oximetry of 99% on room air His chronic medical problems include diabetes mellitus type 2, hypertension, history of liver disease, peripheral arterial disease, hypercholesterolemia, osteoarthritis and previous history of left shoulder surgery Allergies: Coded Allergies: No Known Drug Allergies (Verified Allergy, Unknown, 12/26/15) Home Meds Active Scripts Ketorolac Tromethamine (Ketorolac Tromethamine) 10 Mg Tablet, 1 TAB PO BID for pain for 3 Days, #6 TAB 0 Refills Prov:TIAN JO [facility] 11/08/24 Baclofen (Baclofen) 10 Mg Tablet, 1 TAB PO BID for 5 Days, #10 TAB 0 Refills Prov:TIAN JO [facility] 11/08/24 Ibuprofen (Ibuprofen) 600 Mg Tablet, 600 MG PO Q6H PRN for PAIN, #30 TAB Prov:JENNIFER COOK BELLY DANCER 03/17/23 Cephalexin Monohydrate (Keflex) 500 Mg Cap, 500 MG PO TID for 5 Days, #15 CAP Prov:JENNIFER COOK BELLY DANCER 03/17/23 Lidocaine (Lidoderm Patch 5%) 1 Patch Patch, 1 PATCH TD DAILY for 30 Days, #30 ADH.PATCH 0 Refills Prov:STEVIE TORRES MD 07/28/22 Vancomycin HCl (Vancocin Oral Soln 125 mg) 50 Mg/Ml Soln, 125 MG PO Q6H for 3 Days, #1500 ML 0 Refills Prov:KEREN HINES MD 12/01/21 Reported Medications Insulin NPL/Insulin Lispro (Humalog Mix 75-25 Kwikpen) 100 Unit/1 Ml Insuln.pen, 12 UNITS SQ DAILYDINNER 11/28/21 Insulin Lispro Protamin/Lispro (Insulin Lispro Mix 75-25 Kwkpn) 100 Unit/1 Ml Insuln.pen, 25 UNIT SQ DAILYBKFST 11/28/21 Atorvastatin Calcium (LIPITOR) 40 Mg Tablet, 40 MG PO DAILY, TAB 11/22/21 Lamotrigine (Lamotrigine) 150 Mg Tablet, 300 MG PO DAILY, TAB 11/22/21 Quetiapine Fumarate (Seroquel) 300 Mg Tab, 300 MG PO HS, TAB 11/22/21 Lisinopril (Lisinopril) 10 Mg Tablet, 10 MG PO AM, TAB 12/26/15 Metformin HCl (Metformin HCl) 500 Mg Tablet, 500 MG PO BIDAC, TAB 12/26/15 Past Medical History Past Medical History: Diabetes-Type II, Hypertension, Liver Disease, Vascular Disease, Other Additional Past Medical Hx: DIZZINESS, SOB ON EXERTION, PAD, DYSLIPIDEMIA. ARTHRITIS Surgical History: Other Surgical History Other: R TOTAL SHOULDER REPLACEMENT LAST Feb, L SHOULDER SURGERY YRS AGO Family History: Negative Social History: Negative, Lives with family RN Note Reviewed/Agreed w/PFSH: Yes Review of System Dictation Constitutional: Negative for fever,chills, and weight loss Eyes: Negative for injury, pain,redness, and discharge ENT: Negative for injury,pain or swelling Cardiovascular: Positive for chest discomfort, palpitations only when walking, Respiratory: Positive for shortness of breath, denied cough, and wheezing, Abdomen/GI: Negative for abdominal pain, nausea, vomiting, diarrhea, and constipation Back: Negative for injury and pain : Negative for injury, bleeding and discharge MS/Extremity: Negative for injury and deformity Skin: Negative for rash, and discoloration Neuro: Negative for headache, weakness, numbness, tingling, and seizure Psych: Negative for suicide ideation, homicidal ideation, and hallucinations Initial Vital Sign VS Vital Signs Date Time Temp Pulse Resp B/P (MAP) Pulse Ox O2 Delivery O2 Flow Rate FiO2 02/28/25 19:58 98.4 79 18 128/61 99 Room Air 0 02/28/25 22:00 21 Physical Exam Dictation General: awake, alert, NAD elderly male right shoulder sling in place Head/Face: Normocephalic, atraumatic Eyes: PERRL, EOMI, vision at baseline ENT: oral cavity clear, TMs clear, no signs of infection Neck: Trachea midline, supple, no nuchal rigidity Cardiovascular: RRR, normal S1/S2, No MRGs, no JVD Respiratory: CTAB, no respiratory distress, No rales or wheezes Abdomen: Soft, non-tender, non-distended, normal bowel sounds, no guarding or rebound. Skin: Warm, dry, normal turgor, no rash MS/Extremity: Pulses equal, no cyanosis, neurovascular intact, FROM Neuro: COAx4, GCS 15, strength 5/5, CN 2-12 intact, normal cerebellar exam, normal gait, Psych: Normal behavior, mood, and affect normal Extremities-trace edema without any palpable cords, Homans sign is negative Results (Laboratory/Radiology) Laboratory/Radiology Laboratory Tests Test 02/28/25 21:00 03/01/25 01:21 White Blood Count 6.3 K/uL (4.8-10.8) Red Blood Count 2.59 MIL/uL (4.50-6.20) L Hemoglobin 7.4 g/dL (14.0-18.0) L Hematocrit 23.3 % (42-54) L Mean Corpuscular Volume 90.0 fL (79-99) Mean Corpuscular Hemoglobin 28.6 pg (27.0-33.0) Mean Corpuscular Hemoglobin Concent 31.8 g/dL (32.0-36.0) L Red Cell Distribution Width 13.6 % (11.0-15.5) Platelet Count 209 K/uL (130-400) Mean Platelet Volume 10.5 fL (7.5-10.5) Immature Granulocyte % (Auto) 0.3 % (0-1) Neutrophils (%) (Auto) 71.6 % (40.0-77.0) Lymphocytes (%) (Auto) 16.5 % (21.0-51.0) L Monocytes (%) (Auto) 8.4 % (3.0-13.0) Eosinophils (%) (Auto) 2.7 % (0.0-8.0) Basophils (%) (Auto) 0.5 % (0.0-5.0) Neutrophils # (Auto) 4.5 K/uL (1.8-7.7) Lymphocytes # (Auto) 1.0 K/uL (1.0-4.8) Monocytes # (Auto) 0.5 K/uL (0.1-1.0) Eosinophils # (Auto) 0.17 K/uL (0.00-0.70) Basophils # (Auto) 0.03 K/uL (0.00-0.20) Absolute Immature Granulocyte (auto 0.02 K/uL (0-1) Nucleated Red Blood Cells 0.0 % (0.0-0.19) Sodium Level 140 mmol/L (136-145) Potassium Level 4.3 mmol/L (3.5-5.1) Chloride Level 106 mmol/L (101-111) Carbon Dioxide Level 25 mmol/L (21-32) Blood Urea Nitrogen 22 mg/dL (7-18) H Creatinine 1.3 mg/dL (0.5-1.3) Glomerular Filtration Rate Calc 59 mL/min (>90) Random Glucose 231 mg/dL (70-105) H Total Calcium 8.8 mg/dL (8.5-10.1) Total Creatine Kinase 143 U/L (21-232) # Troponin I High Sensitivity 7 ng/L (4-75) 7 ng/L (4-75) Labs Reviewed?: Yes EKG Comment: Twelve lead EKG done on 02/28/2025 at 8:09 p.m. shows a heart rate of 79, OH interval 173, QRS duration 92, QT/QTC 380/436. Impression normal sinus rhythm with no acute STT wave changes noted. Interpreted by ER MD Dr. Raya ED Course ED Course Orders Procedure Category Date Status Time Cbc With Differential LAB 02/28/25 Complete 20:48 Chest 1vw RAD 02/28/25 Resulted 20:48 12 Lead Ekg Tracing- EKG 02/28/25 Logged Technical 20:48 Creatine Kinase, Total LAB 02/28/25 Complete 20:48 Troponin I High LAB 02/28/25 Complete Sensitivity 20:48 Urinalysis Profile LAB 02/28/25 Logged 20:48 Basic Metabolic Panel LAB 02/28/25 Complete 20:48 Type And Screen BBK 02/28/25 In Process 23:00 Vital Signs Per CPOE 02/28/25 Transmitted Routine 23:00 Iv Insertion CPOE 02/28/25 Transmitted 23:00 Consent For CPOE 02/28/25 Transmitted Transfusion 23:00 Rbc-No Active Bleeding BBK 02/28/25 In Process 23:45 Edm Admit Bridge Order ADM 02/28/25 Transmitted 23:45 Vital Signs(Adult CPOE 03/01/25 Transmitted Hospitalist) 01:04 Oxygen By Nc/Pulse Ox CPOE 03/01/25 Transmitted 01:04 Daily Weights CPOE 03/01/25 Transmitted 01:04 I&O Q Shift CPOE 03/01/25 Transmitted 01:04 Ondansetron 4mg Inj PHA 03/01/25 In Process (Zofran 4mg Inj) 01:30 Pulse Ox(Continuous) RT 03/01/25 Transmitted 01:04 Nurse To Enter Home CPOE 03/01/25 Transmitted Medication 01:04 Admit Orders ADM 03/01/25 Transmitted 01:04 Condition: CPOE 03/01/25 Transmitted 01:04 Telemetry Monitoring CPOE 03/01/25 Transmitted 01:04 Activity: Ad Amita CPOE 03/01/25 Transmitted 01:04 Heart Healthy Diet DIET 03/01/25 Transmitted Breakfast Apply Scds CPOE 03/01/25 Transmitted 01:04 Pantoprazole 40mg Inj PHA 03/01/25 In Process (Protonix 40mg Inj 09:00 Cbc With Differential LAB 03/01/25 Logged 04:00 Comprehensive LAB 03/01/25 Logged Metabolic Panel 04:00 Troponin I High LAB 03/01/25 Complete Sensitivity 01:04 Troponin I High LAB 03/01/25 Logged Sensitivity 07:04 Troponin I High LAB 03/01/25 Logged Sensitivity 13:04 Echo 2-D Complete ECHO 03/01/25 Logged 01:04 Thyroid Stimulating LAB 03/01/25 Logged Hormone 04:00 Ekg Prn For Chest Pain CPOE 03/01/25 Transmitted 01:04 Nitroglycerin 0.4mg PHA 03/01/25 In Process Sl Tab (Nitrostat) 01:30 B-Type Natriuretic LAB 03/01/25 Logged Peptide 04:00 D-Dimer LAB 03/01/25 Logged 04:00 *Nursing CPOE 03/01/25 Transmitted Communication: 01:14 Vital Signs Date Time Temp Pulse Resp B/P (MAP) Pulse Ox O2 Delivery O2 Flow Rate FiO2 02/28/25 22:00 98.4 75 18 115/59 100 Room Air* 0 21 02/28/25 19:58 98.4 79 18 128/61 99 Room Air 0 HEART Score Response (Comments) Value History: Low suspicion (0) 0 EKG: Normal 0 Age: > 65yrs (+2) 2 Risk Factors: 1-2 risk factors (+1) 1 Initial Troponin: Normal limit (0) 0 HEART Score Risk: Low Risk for MACE (1-3) Total 3 Medical Decision Making MDM Differential diagnosis chest wall pain, unstable angina, ACS: Esophagitis, gastroesophageal reflux disease, hiatal hernia, gastritis, pericarditis, c ostochondritis, pleurisy This is a 70-year-old obese male who presented to the emergency room as a referral from Dr. Martinez's office to be evaluated for increased D-dimers and some shortness of breath. The patient underwent a right total shoulder arthroplasty on 02/17/2025 at [facility] by Dr. Steen. He had a follow- up appointment with Dr. Martinez today and reported to him that he was a little short of breath for the past 1 week and nonspecific chest discomfort. The daughter who was at bedside also reported that after patient received Tylenol No. 3 for his right shoulder pain he could not sleep and became extremely confused every single time. He stopped giving the pain medication for his right shoulder. No fever chills or rigors Temperature 98.5 pulse 79 respirations 18 blood pressure 128/61 with a pulse oximetry of 99% on room air His chronic medical problems include diabetes mellitus type 2, hypertension, history of liver disease, peripheral arterial disease, hypercholesterolemia, osteoarthritis and previous history of left shoulder surgery 9:40 a.m. labs reviewed CBC showed a white count of 6.3 hemoglobin 7.4 platelets 209. Please note that his hemoglobin was 13.2 in October 2024 BNP 7 showed a BUN and creatinine of 22 and 1.3. Chest x-ray is unremarkable Given the severe anemia likely postop anemia, as well as the symptoms of chest pain and mild shortness of breath perhaps are likely related to anemia itself 1st set of troponins are negative so far. I recommended admission to the hospital for not only blood transfusion but also to pursue serial cardiac enzymes and any other interventions as deemed necessary . Patient and daughter are agreeable 11:50 p.m. patient accepted by [facility] mid-level provider for [facility] hospitalist group for admission and further management Rationale: Tests considered and ordered secondary to shared decision making include: labs, ECG and radiology Previous outside records reviewed: Old ER visits. Risk of complication and/or morbidity or mortality of patient management: None Medications-Per medication reconciliation Need for hospitalization: Patient does meet criteria for hospitalization. Need for emergency major/minor surgery: No There are no social concerns with this patient. Prescription drug management Prescriptions will include symptomatic care Patient's prior external medical records from other ER visits were reviewed by me as indicated. Prior testing and results from previous visits were reviewed. Prior tests were taken into account with medical decision making and resource utilization, independent historian/historians were used to obtain complete medical history. I independently interpreted the test that were performed, results were reviewed by me and considered findings on radiology if ordered. Medical management and examination interpretation discussions were had by me with other qualified healthcare professionals as indicated for the patient's care. Problem List Problem List: (1) Postoperative anemia (2) Chest pain (3) History of right shoulder surgery DX & DISP Disposition: Inpatient Decision to Admit Time: 23:56 Departure Impression: Primary Impression: Postoperative anemia Additional Impressions: History of right shoulder surgery, Chest pain Condition: Stable Additional Instructions: Patient was informed of all the diagnostic labs and procedures conducted in the emergency room today and demonstrated understanding of the results. I personally reviewed and interpreted all the diagnostic exams performed in the ER today. The patient will be admitted to the hospital for further treatment and evaluation. Disposition-admit to facility Condition-stable/guarded Course-uncertain at this time Pain status-decreased Assessment-exam unchanged Admission Certification- I certify that the patients status is appropriate and is based on my best clinical judgment and the patient's condition as documented in the medical records Referrals: DEON LIU MD (PCP) MONICA RAYA MD Feb 28, 2025 21:46
--- NOTE | 2025-02-28 22:49 | HMCIMG ---
EXAM: CR Chest, 1 view CLINICAL HISTORY: Chest pain. COMPARISON: Chest radiograph dated 12/26/2022. FINDINGS: The lungs show no infiltrates or other acute findings. No pleural effusion or pneumothorax. The cardiomediastinal silhouette is within normal limits. No acute osseous abnormality. A Glenohumeral joint replacement implant is present on the right side. Old healed fractures in the multiple left ribs. IMPRESSION: No acute cardiopulmonary process is evident. Compared to the prior study, there is no significant interval change. /[place]
--- NOTE | 2025-02-28 23:48 | HP ---
[facility] HISTORY [facility] PHYSICAL Date of Service: Feb 28, 2025 Time of Service: 23:48 PCP:Meliza Nieto HISTORY OF PRESENT ILLNESS: This is a 70-year-old Icelandic speaking male bilaterally hard of hearing with past medical history diabetes type 2, hypertension, liver disease, hyperlipidemia ,osteoarthritis and peripheral arterial disease who presented to the ED as referred by to be evaluated for increased D-dimer ,chest pain and shortness of breath on going for 1 week.Patient reportedly had a right shoulder arthroplasty on 02/17/2025 [place] [facility] [place] was complicated by surgical site infection and upon discharge D-dimer was elevated but upper extremity doppler was negative with DVT.The patient is wearing an immobilizer sling to right arm.Patient has aD-dimer of 3.62 and troponin of 21 drawn at his clinic and patient was then advised to come to the ED for evaluation. Seen and examined patient in the ER,awake,alert and coherent.Patient reports chest pain and shortness of breath are triggered with minimal exertion.No diaphoresis no radiation of pain.Patient denies fever,chills,cough,palpitation,nausea,vomiting and abdominal pain. Latest vital signs temperature 98.4, heart rate 86, blood pressure 132/68 saturation 98% on room air. Labs: Hemoglobin 7.4, hematocrit 23, platelet count 209. BUN 22, random glucose 231 troponin seven and seven the rest of the chemistry result is unremarkable. ECG result revealed sinus rhythm heart rate 79. Chest x-ray result revealed no acute cardiopulmonary process is evident. We will admit patient for further medical management. REVIEW OF SYSTEMS CONSTITUTIONAL: Denies fevers, chills, or night sweats. No unintentional weight loss reported. NEUROLOGICAL: Denies headache, amaurosis fugax, motor weakness, sensory deficit, vertigo/spinning sensation, gait abnormalities, or tremors. ENT: No hearing loss, otalgia, otorrhea, rhinitis, rhinorrhea, hoarseness, or sore throat. CARDIOVASCULAR: Chest pain on exertion Denies dyspnea on exertion, orthopnea, paroxysmal nocturnal dyspnea, palpitations, life-threatening arrhythmias, claudication. PULMONARY: Shortness of breath on exertion Denies cough, phlegm/sputum, hemoptysis, pleuritic chest pain. SLEEP: Denies morning headaches, daytime somnolence or napping. Denies difficulty falling asleep, staying asleep, waking from sleep. Denies knowledge of snoring. GASTROINTESTINAL: Denies any type of dysphagia to either liquids or solids. Denies nausea, vomiting, pyrosis, early satiety, abdominal pain, diarrhea, constipation, or changes in stool consistency or caliber. Denies coffee-ground emesis, hematemesis, hematochezia, or melanotic stools. GENITOURINARY: Denies frequency, urgency, nocturia, hematuria or incontinence (Storage/Irritative symptoms.) Low urinary stream, straining to void, urinary intermittency or hesitancy, splitting of the voiding stream, terminal dribbling. ENDOCRINOLOGIC: Denies polyuria, polydipsia, polyphagia or heat/cold intolerances. HEMATOLOGIC: Denies thrombophilia/previous clots, or coagulopathy/bleeding disorders. ONCOLOGIC: Denies personal history of malignancy. DERMATOLOGIC: Denies rashes or pruritus. PSYCHIATRIC: Denies any suicidal or homicidal ideation. Denies hallucinations. PAST MEDICAL HISTORY: [ Diabetes type 2, hypertension, liver disease, hyperlipidemia osteoarthritis and peripheral arterial disease. ] PAST SURGICAL HISTORY: [ Right total shoulder replacement and left shoulder surgery ] PAST SOCIAL HISTORY: [ Patient lives alone. Patient denies alcohol tobacco and recreational drug use ] FAMILY HISTORY: [Diabetes ] Coded Allergies: No Known Drug Allergies (Verified Allergy, Unknown, 12/26/15) PHYSICAL EXAM GENERAL APPEARANCE: The patient is awake, alert, and oriented, in no acute cardiopulmonary distress. NEUROLOGICAL: Cranial nerves II-XII grossly intact. Motor is 5/5 in bilateral upper and lower extremities proximal to distal. No sensory deficits. HEENT: Face is symmetric. Pupils are equal and reactive. Extraocular movements are intact. NECK: Supple. No JVD. No thyromegaly. No submental, submandibular, pre- /postauricular, occipital or supraclavicular lymphadenopathy. CHEST: Normal chest expansion. No Telemetry. LUNGS: Absence of any rales, rhonchi or any wheezing. CARDIOVASCULAR: Regular. S1 and S2 normal. No appreciable rubs, murmurs or gallops. ABDOMEN: Soft, nontender, and nondistended. There is no rebound, voluntary guarding, or rigidity. : Deferred. No Lester. EXTREMITIES: Non-edematous and not cyanotic. No clubbing. Good capillary refill. SKIN: No skin breakdown. Vital Sign (Last 24 Hours) 02/28/25 22:00 Temp 98.4 Pulse 75 Resp 18 B/P (MAP) 115/59 Pulse Ox 100 O2 Delivery Room Air* O2 Flow Rate 0 FiO2 21 LABS: Laboratory: Test 02/28/25 21:00 Range/Units White Blood Count 6.3 4.8-10.8 K/uL Red Blood Count 2.59 L 4.50-6.20 MIL/uL Hemoglobin 7.4 L 14.0-18.0 g/dL Hematocrit 23.3 L 42-54 % Mean Corpuscular Volume 90.0 79-99 fL Mean Corpuscular Hemoglobin 28.6 27.0-33.0 pg Mean Corpuscular Hemoglobin Concent 31.8 L 32.0-36.0 g/dL Red Cell Distribution Width 13.6 11.0-15.5 % Platelet Count 209 130-400 K/uL Mean Platelet Volume 10.5 7.5-10.5 fL Immature Granulocyte % (Auto) 0.3 0-1 % Neutrophils (%) (Auto) 71.6 40.0-77.0 % Lymphocytes (%) (Auto) 16.5 L 21.0-51.0 % Monocytes (%) (Auto) 8.4 3.0-13.0 % Eosinophils (%) (Auto) 2.7 0.0-8.0 % Basophils (%) (Auto) 0.5 0.0-5.0 % Neutrophils # (Auto) 4.5 1.8-7.7 K/uL Lymphocytes # (Auto) 1.0 1.0-4.8 K/uL Monocytes # (Auto) 0.5 0.1-1.0 K/uL Eosinophils # (Auto) 0.17 0.00-0.70 K/uL Basophils # (Auto) 0.03 0.00-0.20 K/uL Absolute Immature Granulocyte (auto 0.02 0-1 K/uL Nucleated Red Blood Cells 0.0 0.0-0.19 % Sodium Level 140 136-145 mmol/L Potassium Level 4.3 3.5-5.1 mmol/L Chloride Level 106 101-111 mmol/L Carbon Dioxide Level 25 21-32 mmol/L Blood Urea Nitrogen 22 H 7-18 mg/dL Creatinine 1.3 0.5-1.3 mg/dL Glomerular Filtration Rate Calc 59 >90 mL/min Random Glucose 231 H 70-105 mg/dL Total Calcium 8.8 8.5-10.1 mg/dL Total Creatine Kinase 143 # 21-232 U/L Troponin I High Sensitivity 7 4-75 ng/L DIAGNOSTICS / RADIOLOGY: [ ] ASSESSMENT: Acute symptomatic anemia POA Chest pain unspecified POA Recent right shoulder arthroplasty 02/17/2025 POA Diabetes with hyperglycemia POA PLAN: We will admit patient in medical telemetry We will start on heart healthy diet We will start on Protonix 40 mg IV daily for GI prophylaxis We will replace electrolytes as needed per protocol We will start on insulin sliding scale AC & HS with hypoglycemia protocol We will add prn medication for fever,pain,cough , nausea and vomiting We will reconcile home meds once medlist available We will trend troponin q.6 x3 Will follow Up urinalysis result We will seek Hematology consultation We will request labs in am Further orders to follow depending on above results Case discussed with attending physician and came up with above treatment and plan of care. ADVANCED CARE PLANNING 1. Which of the following were discussed? Hospice Care - No Therapeutic options - Yes Advance Directives - No Other discussions - 2. Discussed with who? Patient 3. Voluntary nature of this service was explained to the patient? Yes 4. Amount of time spent - __24 min 5. Reviewed by Physician? (if this service was performed by NPP) Yes Patient seen and examined by me. Agree with note by RAILROAD HAND SEE ADDITIONAL ORDERS PER CHART DISCUSSED WITH NURSING STAFF BERNY GAYP Feb 28, 2025 23:48
[2025-03-01] VITALS (7 sets, daily range): BP systolic 126–154; BP diastolic 62–77; PULSE 75–114; RESP 16–20; TEMP 98.1–98.4; O2SAT 94–100
--- NOTE | 2025-03-01 00:50 | NUR ---
VICTOR HUGO SHIPPING/RECEIVING MANAGER AT BEDSIDE,PER SHIPPING/RECEIVING MANAGER BLOOD TRANSFUSION ORDER TO BE HELD AT THIS TIME
[2025-03-01] MEDS ORDERED: NITROGLYCERIN 0.4 MG SL TAB SL PRN (01:30)
[2025-03-01] MEDS ORDERED: VENL225T3 PO (03:40)
[2025-03-01] MEDS ORDERED: LAMO200T51 PO (03:40)
[2025-03-01] MEDS ORDERED: QUET400T13 PO (03:40)
[2025-03-01] MEDS ORDERED: CLON1TAB23 PO (03:40)
[2025-03-01] MEDS ORDERED: LOSA25TA41 PO (03:40)
[2025-03-01] MEDS ORDERED: ATOR40TA71 PO (03:40)
[2025-03-01] MEDS ORDERED: CARV6.25 PO (03:40)
[2025-03-01] MEDS ORDERED: LATA2.5D7 OP (03:40)
[2025-03-01] MEDS ORDERED: ISOS30TA92 PO (03:40)
--- NOTE | 2025-03-01 03:46 | NUR ---
REPORT GIVEN TO NURSE STEPHANIE
[2025-03-01] MEDS ORDERED: MAGNESIUM 2GM PREMIX 50ML 50 ML IV PRN (04:30)
[2025-03-01] MEDS ORDERED: GLUCAGON 1MG KIT 1 MG ML IM PRN (04:30)
[2025-03-01] MEDS ORDERED: DEXTROSE 50%-WATER 50 ML DISP.SYRIN IV PRN (04:30)
[2025-03-01] MEDS ORDERED: PoTASSium chl 10% ELIXIR 20MEQ 20 MEQ/15 ML UDCUP PO PRN (04:30)
[2025-03-01 05:12] LABS: IMMATURE GRANULOCYTE ABSOLUTE 0.02 K/uL (0-1); NUCLEATED RED BLOOD CELLS 0.0 % (0.0-0.19); PLATELET COUNT (AUTO) 191 K/uL (130-400); RED BLOOD CELL COUNT(AUTO) 2.51 MIL/uL (4.50-6.20); RED CELL DISTRIBUTION WIDTH 13.2 % (11.0-15.5); WHITE BLOOD COUNT (AUTO) 5.9 K/uL (4.8-10.8)
[2025-03-01 05:30] LABS: % IRON SATURATION 16.8 % (30-44); IRON, SERUM 33.0 mcg/dL (65-175)
[2025-03-01 05:38] LABS: ASPARTATE AMINOTRANSFERASE 23.0 U/L (10-37); CREATININE 1.3 mg/dL (0.5-1.3); GLOMERULAR FILTR. RATE CALC 59.0 mL/min (>90); GLUCOSE,RANDOM 215.0 mg/dL (70-105); SODIUM SERUM 137.0 mmol/L (136-145); TOTAL PROTEIN, SERUM 6.9 g/dL (6.0-8.3); UREA NITROGEN, BLOOD 21.0 mg/dL (7-18)
--- NOTE | 2025-03-01 08:46 | EKG ---
[facility] Test Date: 2025-02-28 Test Time: 20:09:38 Pat Name: MONTA[place] JO Department: [facility] Room: 312 1 Gender: M Soap Boiler: FRANCISCA : 1955 Requested By: MONICA THOMAS Order Number: [id number] Reading MD: Tigre Brooks Measurements Intervals Brady Rate: 79 P: 24 ID: [id number] QRS: 17 QRSD: 92 T: 21 QT: 380 QTc: 436 Interpretive Statements Sinus rhythm Compared to ECG 10/27/2024 19:54:06 No significant changes Electronically Signed On 03-02-2025 10:10:48 DISTRIBUTION OPERATION SUPERVISOR by Tigre Brooks Please click the below link to view image of tracing.
--- NOTE | 2025-03-01 14:54 | CONS ---
CONSULT NOTE: This is a 70-year-old American speaking male bilaterally hard of hearing with past medical history diabetes type 2, hypertension, liver disease, hyperlipidemia ,osteoarthritis and peripheral arterial disease who presented to the ED as referred by to be evaluated for increased D-dimer ,chest pain and shortness of breath on going for 1 week.Patient reportedly had a right shoulder arthroplasty [place]17/2025 [place] [facility] [place] was complicated by surgical site infection and upon discharge D-dimer was elevated but upper extremity doppler was negative with DVT.The patient is wearing an immobilizer sling to right arm.Patient has aD-dimer of 3.62 and troponin of 21 drawn at his clinic and patient was then advised to come to the ED for evaluation. The patient was found to have iron deficiency anemia with the patient was started on IV iron. REVIEW OF SYSTEMS CONSTITUTIONAL: Denies fevers, chills, or night sweats. No unintentional weight loss reported. NEUROLOGICAL: Denies headache, amaurosis fugax, motor weakness, sensory deficit, vertigo/spinning sensation, gait abnormalities, or tremors. ENT: No hearing loss, otalgia, otorrhea, rhinitis, rhinorrhea, hoarseness, or sore throat. CARDIOVASCULAR: Chest pain on exertion Denies dyspnea on exertion, orthopnea, paroxysmal nocturnal dyspnea, palpitations, life-threatening arrhythmias, claudication. PULMONARY: Shortness of breath on exertion Denies cough, phlegm/sputum, hemoptysis, pleuritic chest pain. SLEEP: Denies morning headaches, daytime somnolence or napping. Denies difficulty falling asleep, staying asleep, waking from sleep. Denies knowledge of snoring. GASTROINTESTINAL: Denies any type of dysphagia to either liquids or solids. Denies nausea, vomiting, pyrosis, early satiety, abdominal pain, diarrhea, constipation, or changes in stool consistency or caliber. Denies coffee-ground emesis, hematemesis, hematochezia, or melanotic stools. GENITOURINARY: Denies frequency, urgency, nocturia, hematuria or incontinence (Storage/Irritative symptoms.) Low urinary stream, straining to void, urinary intermittency or hesitancy, splitting of the voiding stream, terminal dribbling. ENDOCRINOLOGIC: Denies polyuria, polydipsia, polyphagia or heat/cold intolerances. HEMATOLOGIC: Denies thrombophilia/previous clots, or coagulopathy/bleeding disorders. ONCOLOGIC: Denies personal history of malignancy. DERMATOLOGIC: Denies rashes or pruritus. PSYCHIATRIC: Denies any suicidal or homicidal ideation. Denies hallucinations. PAST MEDICAL HISTORY: [ Diabetes type 2, hypertension, liver disease, hyperlipidemia osteoarthritis and peripheral arterial disease. ] PAST SURGICAL HISTORY: [ Right total shoulder replacement and left shoulder surgery ] PAST SOCIAL HISTORY: [ Patient lives alone. Patient denies alcohol tobacco and recreational drug use ] FAMILY HISTORY: [Diabetes ] Coded Allergies: No Known Drug Allergies (Verified Allergy, Unknown, 12/26/15) PHYSICAL EXAM GENERAL APPEARANCE: The patient is awake, alert, and oriented, in no acute cardiopulmonary distress. NEUROLOGICAL: Cranial nerves II-XII grossly intact. Motor is 5/5 in bilateral upper and lower extremities proximal to distal. No sensory deficits. HEENT: Face is symmetric. Pupils are equal and reactive. Extraocular movements are intact. NECK: Supple. No JVD. No thyromegaly. No submental, submandibular, pre-/postauricular, occipital or supraclavicular lymphadenopathy. CHEST: Normal chest expansion. No Telemetry. LUNGS: Absence of any rales, rhonchi or any wheezing. CARDIOVASCULAR: Regular. S1 and S2 normal. No appreciable rubs, murmurs or gallops. ABDOMEN: Soft, nontender, and nondistended. There is no rebound, voluntary guarding, or rigidity. : Deferred. No Lester. EXTREMITIES: Non-edematous and not cyanotic. No clubbing. Good capillary refill. SKIN: No skin breakdown. Assessment 1 severe anemia status post blood transfusion 2. Recent right shoulder arthroplasty 3. Diabetes 4. Chest pain 5. Difficulty of hearing 6. Hypertension 7. Possibility of liver disease Plan 1. Peripheral blood smear showed red blood cells to be microcytic hypochromic red blood cell consistent with iron deficiency anemia.. There was no fragment cell or schistocyte. There is no teardrop cell. There is no rouleaux phenomena. There is no pelger-Huet cell. White blood cell with no blasts. Platelet was normal in morphology and count. 2. There was hypersegmented neutrophils. This patient to be started on folic acid 1 mg p.o. daily and vitamin B12 1000 mcg p.o. daily. 3. This patient already started on IV iron. Patient to receive Venofer 200 mg IV daily for at least 3 days. This patient then will need oral iron tablet every other day for 6 months. 4. This patient have iron deficiency anemia. This patient need to be investigated by GI with possibility of EGD and colonoscopy if not done earlier. 5. There is no need for blood product transfusion at this time. MICHAEL DEE MD Mar 01, 2025 14:54
[2025-03-01] MEDS ORDERED: IOHEXOL-350 75 ML VIAL IV ONE (14:59)
--- NOTE | 2025-03-01 15:08 | NUR ---
INFORMED DR BLANK PATIENT IS REFUSING CT OF CHEST TO R/O PE "UNLESS HE'S GOING HOME TODAY
--- NOTE | 2025-03-01 15:14 | PN ---
[facility] PROGRESS NOTE Date of Service: Mar 01, 2025 Time of Service: 14:27 HISTORY OF PRESENT ILLNESS: This is a 70-year-old Monegasque speaking male bilaterally hard of hearing with past medical history diabetes type 2, hypertension, liver disease, hyperlipidemia ,osteoarthritis and peripheral arterial disease who presented to the ED as referred by Dr. Martinez to be evaluated for increased D-dimer ,chest pain and shortness of breath on going for 1 week.Patient reportedly had a right shoulder arthroplasty on 02/17/2025 by at [facility] [place] which was complicated by surgical site infection and upon discharge D-dimer was elevated but upper extremity doppler was negative with DVT.The patient is wearing an immobilizer sling to right arm. Patient has a D-dimer of 3.62 and troponin of 21 drawn at his clinic and patient was then advised to come to the ED for evaluation. Seen and examined patient in the ER,awake,alert and coherent.Patient reports chest pain and shortness of breath are triggered with minimal exertion.No diaphoresis no radiation of pain.Patient denies fever,chills,cough,palpitation,nausea,vomiting and abdominal pain. Latest vital signs temperature 98.4, heart rate 86, blood pressure 132/68 saturation 98% on room air. Labs: Hemoglobin 7.4, hematocrit 23, platelet count 209. BUN 22, random glucose 231 troponin seven and seven the rest of the chemistry result is unremarkable. ECG result revealed sinus rhythm heart rate 79. Chest x-ray result revealed no acute cardiopulmonary process is evident. SUBJECTIVE: 03/01/25: Patient was seen and evaluated on room 312 along with his bedside. Patient reports that patient had chest pain with exertion 2 days ago. Patient currently denies any chest pain, shortness of breath and b/l lower extremity pain. patient denies any fever or chills, cough, palpitation, nausea, vomiting and abdominal pain. D-Dimer was elevated - 3550. Other pertinent labs today Hb-7.3 REVIEW OF SYSTEMS CONSTITUTIONAL: Denies fevers, chills, or night sweats. No unintentional weight loss reported. NEUROLOGICAL: Denies headache, amaurosis fugax, motor weakness, sensory deficit, vertigo/spinning sensation, gait abnormalities, or tremors. ENT: No hearing loss, otalgia, otorrhea, rhinitis, rhinorrhea, hoarseness, or sore throat. CARDIOVASCULAR: Chest pain on exertion Denies dyspnea on exertion, orthopnea, paroxysmal nocturnal dyspnea, palpitations, life-threatening arrhythmias, claudication. PULMONARY: Shortness of breath on exertion Denies cough, phlegm/sputum, hemoptysis, pleuritic chest pain. SLEEP: Denies morning headaches, daytime somnolence or napping. Denies difficulty falling asleep, staying asleep, waking from sleep. Denies knowledge of snoring. GASTROINTESTINAL: Denies any type of dysphagia to either liquids or solids. Denies nausea, vomiting, pyrosis, early satiety, abdominal pain, diarrhea, constipation, or changes in stool consistency or caliber. Denies coffee-ground emesis, hematemesis, hematochezia, or melanotic stools. GENITOURINARY: Denies frequency, urgency, nocturia, hematuria or incontinence (Storage/Irritative symptoms.) Low urinary stream, straining to void, urinary intermittency or hesitancy, splitting of the voiding stream, terminal dribbling. ENDOCRINOLOGIC: Denies polyuria, polydipsia, polyphagia or heat/cold intolerances. HEMATOLOGIC: Denies thrombophilia/previous clots, or coagulopathy/bleeding disorders. ONCOLOGIC: Denies personal history of malignancy. DERMATOLOGIC: Denies rashes or pruritus. PSYCHIATRIC: Denies any suicidal or homicidal ideation. Denies hallucinations. PHYSICAL EXAM GENERAL APPEARANCE: The patient is awake, alert, and oriented, in no acute cardiopulmonary distress. NEUROLOGICAL: Cranial nerves II-XII grossly intact. Motor is 5/5 in bilateral upper and lower extremities proximal to distal. No sensory deficits. HEENT: Face is symmetric. Pupils are equal and reactive. Extraocular movements are intact. NECK: Supple. No JVD. No thyromegaly. No submental, submandibular, pre- /postauricular, occipital or supraclavicular lymphadenopathy. CHEST: Normal chest expansion. No Telemetry. LUNGS: Absence of any rales, rhonchi or any wheezing. CARDIOVASCULAR: Regular. S1 and S2 normal. No appreciable rubs, murmurs or gallops. ABDOMEN: Soft, nontender, and nondistended. There is no rebound, voluntary guarding, or rigidity. : Deferred. No Lester. EXTREMITIES: Non-edematous and not cyanotic. No clubbing. Good capillary refill. SKIN: No skin breakdown. Vital Signs (last 8hr) Date Time Temp Pulse Resp B/P (MAP) Pulse Ox O2 Delivery O2 Flow Rate FiO2 03/01/25 12:08 100 Room Air* 0 21 03/01/25 08:00 98.4 76 16 154/77 100 Room Air LABS: Laboratory: Test 03/01/25 13:10 03/01/25 11:38 03/01/25 07:07 03/01/25 05:00 Range/Units Troponin I High Sensitivity 10 4-75 ng/L Whole Blood Glucose 216 H 70-110 MG/DL D-Dimer Quantitative (PE/DVT) 3550 *H 0-500 ng/mL Lactate Dehydrogenase 318 H 81-234 U/L White Blood Count 5.9 4.8-10.8 K/uL Red Blood Count 2.51 L 4.50-6.20 MIL/uL Hemoglobin 7.3 L 14.0-18.0 g/dL Hematocrit 22.1 L 42-54 % Mean Corpuscular Volume 88.0 79-99 fL Mean Corpuscular Hemoglobin 29.1 27.0-33.0 pg Mean Corpuscular Hemoglobin Concent 33.0 32.0-36.0 g/dL Red Cell Distribution Width 13.2 11.0-15.5 % Platelet Count 191 130-400 K/uL Mean Platelet Volume 10.4 7.5-10.5 fL Immature Granulocyte % (Auto) 0.3 0-1 % Neutrophils (%) (Auto) 75.7 40.0-77.0 % Lymphocytes (%) (Auto) 14.4 L 21.0-51.0 % Monocytes (%) (Auto) 7.1 3.0-13.0 % Eosinophils (%) (Auto) 2.0 0.0-8.0 % Basophils (%) (Auto) 0.5 0.0-5.0 % Neutrophils # (Auto) 4.5 1.8-7.7 K/uL Lymphocytes # (Auto) 0.9 L 1.0-4.8 K/uL Monocytes # (Auto) 0.4 0.1-1.0 K/uL Eosinophils # (Auto) 0.12 0.00-0.70 K/uL Basophils # (Auto) 0.03 0.00-0.20 K/uL Absolute Immature Granulocyte (auto 0.02 0-1 K/uL Nucleated Red Blood Cells 0.0 0.0-0.19 % Sodium Level 137 136-145 mmol/L Potassium Level 3.5 3.5-5.1 mmol/L Chloride Level 104 101-111 mmol/L Carbon Dioxide Level 24 21-32 mmol/L Blood Urea Nitrogen 21 H 7-18 mg/dL Creatinine 1.3 0.5-1.3 mg/dL Glomerular Filtration Rate Calc 59 >90 mL/min Random Glucose 215 H 70-105 mg/dL Total Calcium 8.7 8.5-10.1 mg/dL Iron Level 33 #L 65-175 mcg/dL Total Iron Binding Capacity 196 L 250-450 mcg/dL Percent Iron Saturation 16.8 L 30-44 % Total Bilirubin 0.6 0.2-1.0 mg/dL Aspartate Amino Transf (AST/SGOT) 23 10-37 U/L Alanine Aminotransferase (ALT/SGPT) 32 12-78 U/L Alkaline Phosphatase 121 50-136 U/L B-Type Natriuretic Peptide 262 H 0-100 pg/mL Total Protein 6.9 6.0-8.3 g/dL Albumin 3.1 L 3.5-5.0 g/dL Thyroid Stimulating Hormone (TSH) 1.80 # 0.36-3.74 uIU/mL Test 02/28/25 21:00 Range/Units Total Creatine Kinase 143 # 21-232 U/L Current Medications Medications (Trade) Dose Ordered Sig/Venkat Route PRN Reason Start Time Stop Time Status Last Admin Dose Admin Atorvastatin Calcium (LIPItor 40MG) 40 mg DAILY PO 03/02/25 09:00 04/01/25 08:59 Carvedilol (Coreg 6.25MG) 6.25 mg BID PO 03/01/25 21:00 03/31/25 20:59 Clonazepam (KLONopin 1MG TAB) 1 mg TID PRN PO ANXIETY/AGITATION 03/01/25 10:00 03/31/25 09:59 Dextrose (D50w) 50 ml AD PRN IV HYPOGLYCEMIA PROTOCOL 03/01/25 04:30 03/31/25 04:29 Glucagon (Glucagon 1mg Kit) 1 mg AD PRN IM HYPOGLYCEMIA PROTOCOL 03/01/25 04:30 03/31/25 04:29 Home Med (Home Medication) (Lamotrigine 200MG ER TAB) DAILY PO 03/02/25 09:00 04/01/25 08:59 Home Med (Home Medication) (Venlafaxine HCl ER) 225MG... DAILY PO 03/02/25 09:00 04/01/25 08:59 Insulin Human Regular (humuLIN R 100 UNIT/ML 3ML) INSULIN SLIDING SCAL... ACHS SQ 03/01/25 07:30 03/31/25 07:29 03/01/25 12:45 3 UNIT Isosorbide Mononitrate (Imdur 30mg Sr) 30 mg DAILY PO 03/02/25 09:00 04/01/25 08:59 Latanoprost (Xalatan) 1 DROP HS OP 03/01/25 21:00 03/31/25 20:59 Losartan Potassium (CozAAR 25MG TAB) 25 mg DAILY PO 03/02/25 09:00 04/01/25 08:59 Magnesium Sulfate 50 ml @ 0 mls/hr PROTOCOL PRN IV OTHER [SEE ORDER COMMENTS] 03/01/25 04:30 03/31/25 04:29 Nitroglycerin (Nitrostat) 0.4 mg AD PRN SL CHEST PAIN 03/01/25 01:30 03/31/25 01:29 Ondansetron HCl (zoFRAN 4MG INJ) 4 mg Q6H PRN IV NAUSEA/VOMITING 03/01/25 01:30 03/31/25 01:29 Pantoprazole Sodium (PROTonix 40MG INJ) 40 mg DAILY IVP 03/01/25 09:00 03/31/25 08:59 03/01/25 10:20 40 MG Potassium Chloride 100 ml @ 100 mls/hr AD PRN IV POTASSIUM PROTOCOL 03/01/25 04:30 03/31/25 04:29 Potassium Chloride (K-Dur/Klor-Con 20meq) 20 meq AD PRN PO POTASSIUM PROTOCOL 03/01/25 04:30 03/31/25 04:29 Potassium Chloride (KCl 10% Elixir 20meq/15ml) 20 meq AD PRN PO POTASSIUM PROTOCOL 03/01/25 04:30 03/31/25 04:29 Quetiapine Fumarate (SEROquel 100 mg TAB) 400 mg HS PO 03/01/25 21:00 03/31/25 20:59 DIAGNOSTICS / RADIOLOGY: [facility] [address] [place] [address] IMAGING REPORT Signed PATIENT: [place] JO MR#: [id number] : 1955 SEX: M AGE: 70 LOCATION: [facility] ORDER 48 STATUS: REG ER REPORT#: [id number] SERVICE 47 REASON: chest pain ORDERING PHYSICIAN: MONICA THOMAS MD PROCEDURE: CXR1VW - CHEST 1VW EXAM: CR Chest, 1 view CLINICAL HISTORY: Chest pain. COMPARISON: Chest radiograph dated 12/26/2022. FINDINGS: The lungs show no infiltrates or other acute findings. No pleural effusion or pneumothorax. The cardiomediastinal silhouette is within normal limits. No acute osseous abnormality. A Glenohumeral joint replacement implant is present on the right side. Old healed fractures in the multiple left ribs. IMPRESSION: No acute cardiopulmonary process is evident. Compared to the prior study, there is no significant interval change. /[place] DICTATED BY: MARCK WALLACE Jr., MD DATE: 02/28/252348 ELECTRONICALLY SIGNED BY: MARCK WALLACE Jr., MD DATE: 02/28/252348 ASSESSMENT: Acute symptomatic anemia POA Chest pain unspecified POA Recent right shoulder arthroplasty 02/17/2025 POA Diabetes with hyperglycemia POA PLAN: Chest pain unspecified POA: * On presentation D-dimer was elevated-3550. CXR was unremarkable. Troponin- 7, BNP-262. * Chest CT with contrast was ordered. * 2D-ECHO was ordered, pending results. * Home medication of Coreg 6.25mg, Isosorbide mononitrate 30mg were resumed. Acute symptomatic anemia POA: * On presentation Hb-7.3, Iron - 33, TIBC-196, %saturation-16.8. * Patient was started on IV Venofer 200mg. * LDH, Occult blood stool test was ordered * GI was consulted for suspected GI bleed for cause of anemia. * Hematology was consulted, will follow their recommendations. ATTESTATION BY PHYSICIAN I have seen and examined the patient. I reviewed the documentation, medical decision making, and treatment plan as noted by the resident physician above. I agree with the findings and plan of care. NICK OMER MD, SHAJI MD Mar 01, 2025 15:14
[2025-03-01] MEDS: PoTASSium chloRIDE 20MEQ ER 20 MEQ ERTAB PO PRN (15:46)
--- NOTE | 2025-03-01 16:04 | NUR ---
CT ATTEMPT MADE. PT REFUSED CT SCAN AT THIS TIME. JASON MCCALL NOTIFIED.
--- NOTE | 2025-03-01 16:46 | NUR ---
Discharge Planning: Patient states he lives alone. PCP is Dr. Gerson Haider and preferred pharmacy is [facility] in [place]. Pt. states he is independent with all ADL's. No home health, provider services, or DME. Pt. is hard of hearing, hearing aids at bedside. Croatian-speaking. States he has 6 daughters. DCP is for home when stable.
[2025-03-01] MEDS: LATANOPROST 2.5 ML DROPS OP SCH (21:00)
--- NOTE | 2025-03-01 23:24 | HMCSR ---
APPROVED REPORT EXAM: Two-dimensional and M-mode echocardiogram with Doppler and color Doppler. INDICATION ICD: Chest Pain 2D Dimensions RVDd 4.1 cm LVEF(%) 65.6 (>50%) LVED Vol(simp.) 80.0 mL IVSd 0.9 (0.7-1.1cm) FS(%) 36 % LVES Vol(simp.) 36.0 mL LVDd 4.9 (3.8-5.6cm) LA (2D) 4.4 (1.6-4.0cm) LVEF(%, simp.) 55 % PWd 1.1 (0.7-1.1cm) Ao Root(2D) 2.7 (2.0-3.7cm) LA ESV INDEX (BP) 60.00 mL/m2 LVDs 3.1 (2.5-4.0cm) LVOT diam 2.2 (1.8-2.4cm) IVC diam 1.6 cm Deformation Strain Apical 4 -20.1 % Apical 2 -15.5 % Apical 3 -17.9 % Global Strain -17.9 % M-Mode Dimensions EPSS 0.5 cm LA (MM) 4.4 (1.6-4.0cm) Ao Root(MM) 2.8 (2.0-3.7cm) Aortic Valve AoV Vmax 1.6 m/s Ao Peak GR 10.7 mmHg LVOT Vmax 1.2 m/s AoV VTI 0.4 m Ao Mean GR 6.0 mmHg LVOT VTI 0.25 m JENNIFER (VMAX) 2.72 cm2 JENNIFER (VTI) 2.6 cm2 Mitral Valve MV E Vmax 133.1 cm/s DECEL Time 272 ms MV A Vmax 79.3 cm/s P 1/2 T 78 ms E/A ratio 1.7 MVA (PHT) 2.8 cm2 TDI E/E' Medial 14.4 E/E' Lateral 11.4 Medial E' Peak V 9.25 cm/s Lateral E' Peak V 11.70 cm/s Pulmonary Valve PV Vmax 1.0 m/s PV VTI 0.24 m PV Mean GR 2.3 mmHg PV Peak GR 3.9 mmHg Tricuspid Valve TR Vmax 2.8 m/s RVSP 25.6 mmHg TR Peak GR 33.9 mmHg Left Ventricle The left ventricle is normal size. No regional wall motion abnormalities noted. Mild concentric left ventricular hypertrophy. Left ventricular systolic function is normal, estimated LVEF is 55 to 60%. Stage II, diastolic dysfunction. Right Ventricle The right ventricle is normal size. The right ventricular systolic function is normal. Atria The left atrium is severely dilated, 60 mL/m. The right atrium size is normal. Aortic Valve Aortic valve is trileaflet. The leaflets are mildly thickened and calcified. Trace aortic regurgitation. There is no aortic valvular stenosis. Mitral Valve The mitral valve is normal in structure and function. There is a calcified, echodense mass, seen on the anterior leaflet of the mitral valve. Trace mitral regurgitation. There is no mitral valve stenosis. Tricuspid Valve The tricuspid valve is normal in structure. Mild tricuspid regurgitation. RVSP is 27 mmHg. Pulmonic Valve Pulmonic valve is not well visualized. Great Vessels The aortic root is normal in size. The IVC is normal in size and collapses >50% with inspiration. Pericardium There is no pericardial effusion. Conclusion The left atrium is severely dilated, 60 mL/m. Mild concentric left ventricular hypertrophy. No regional wall motion abnormalities noted. Left ventricular systolic function is normal, estimated LVEF is 55 to 60%. Stage II, diastolic dysfunction. Trace aortic regurgitation. The mitral valve is normal in structure and function. There is a calcified, echodense mass, seen on the anterior leaflet of the mitral valve. Trace mitral regurgitation. Mild tricuspid regurgitation. PASP is 30 mmHg. There is no pericardial effusion.
[2025-03-02] VITALS: BP 124/60; PULSE 71; RESP 18; TEMP 98.8
[2025-03-02 04:00] VITALS: BP 113/60; PULSE 76; RESP 18; TEMP 98.5
[2025-03-02 05:16] LABS: IMMATURE GRANULOCYTE ABSOLUTE 0.01 K/uL (0-1); NUCLEATED RED BLOOD CELLS 0.0 % (0.0-0.19); PLATELET COUNT (AUTO) 226 K/uL (130-400); RED BLOOD CELL COUNT(AUTO) 2.79 MIL/uL (4.50-6.20); RED CELL DISTRIBUTION WIDTH 13.3 % (11.0-15.5); WHITE BLOOD COUNT (AUTO) 6.5 K/uL (4.8-10.8)
[2025-03-02 05:27] LABS: CREATININE 1.2 mg/dL (0.5-1.3); GLOMERULAR FILTR. RATE CALC 65.0 mL/min (>90); GLUCOSE,RANDOM 179.0 mg/dL (70-105); SODIUM SERUM 141.0 mmol/L (136-145); UREA NITROGEN, BLOOD 14.0 mg/dL (7-18)
[2025-03-02 06:27] LABS: APPEARANCE,URINE CLEAR (CLEAR); GLUCOSE, URINE (UA) 150 mg/dL (NEGATIVE); LEUKOCYTE ESTERASE ,URINE NEGATIVE Leu/uL (NEGATIVE); NITRATE,URINE NEGATIVE (NEGATIVE); OCCULT BLOOD,URINE NEGATIVE (NEGATIVE)
[2025-03-02 06:29] LABS: ADD UA MICROSCOPIC YES
[2025-03-02 06:31] LABS: SQUAMOUS EPITHELIAL CELL,UR RARE /HPF (0-2)
[2025-03-02 07:45] VITALS: O2SAT 98
[2025-03-02 08:00] VITALS: BP 112/69; PULSE 75; RESP 20; TEMP 97.8
--- NOTE | 2025-03-02 09:01 | PN ---
his is a 70-year-old Estonian speaking male bilaterally hard of hearing with past medical history diabetes type 2, hypertension, liver disease, hyperlipidemia ,osteoarthritis and peripheral arterial disease who presented to the ED as referred by to be evaluated for increased D-dimer ,chest pain and shortness of breath on going for 1 week.Patient reportedly had a right [place] [facility] [place] complicated by surgical site infection and upon discharge D-dimer was elevated but upper extremity doppler was negative with DVT.The patient is wearing an immobilizer sling to right arm.Patient has aD-dimer of 3.62 and troponin of 21 drawn at his clinic and patient was then advised to come to the ED for evaluation. The patient was found to have iron deficiency anemia with the patient was started on IV iron. GI consultation was ordered PHYSICAL EXAM GENERAL APPEARANCE: The patient is awake, alert, and oriented, in no acute cardiopulmonary distress. NEUROLOGICAL: Cranial nerves II-XII grossly intact. Motor is 5/5 in bilateral upper and lower extremities proximal to distal. No sensory deficits. HEENT: Face is symmetric. Pupils are equal and reactive. Extraocular movements are intact. NECK: Supple. No JVD. No thyromegaly. No submental, submandibular, pre- /postauricular, occipital or supraclavicular lymphadenopathy. CHEST: Normal chest expansion. No Telemetry. LUNGS: Absence of any rales, rhonchi or any wheezing. CARDIOVASCULAR: Regular. S1 and S2 normal. No appreciable rubs, murmurs or gallops. ABDOMEN: Soft, nontender, and nondistended. There is no rebound, voluntary guarding, or rigidity. : Deferred. No Lester. EXTREMITIES: Non-edematous and not cyanotic. No clubbing. Good capillary refill. SKIN: No skin breakdown. Assessment 1 severe anemia status post blood transfusion 2. Recent right shoulder arthroplasty 3. Diabetes 4. Chest pain 5. Difficulty of hearing 6. Hypertension 7. Possibility of liver disease Plan 1. Peripheral blood smear showed red blood cells to be microcytic hypochromic red blood cell consistent with iron deficiency anemia.. There was no fragment cell or schistocyte. There is no teardrop cell. There is no rouleaux phenomena. There is no pelger-Huet cell. White blood cell with no blasts. Platelet was normal in morphology and count. 2. There was hypersegmented neutrophils. This patient to be started on folic acid 1 mg p.o. daily and vitamin B12 1000 mcg p.o. daily. 3. This patient already started on IV iron. Patient to receive Venofer 200 mg IV daily for at least 3 days. This patient then will need oral iron tablet every other day for 6 months. 4. This patient have iron deficiency anemia. This patient need to be investigated by GI with possibility of EGD and colonoscopy if not done earlier. 5. There is no need for blood product transfusion at this time. Vitals/Labs Vital Signs Date Time Temp Pulse Resp B/P (MAP) Pulse Ox O2 Delivery O2 Flow Rate FiO2 03/02/25 08:00 97.9 75 20 112/69 100 Room Air 03/02/25 07:45 0 21 Laboratory Tests 03/02/25 04:48 Medications Current Medications Ondansetron HCl 4 mg Q6H PRN IV; Start 03/01/25 at 01:30; Stop 03/31/25 at 01:29 Pantoprazole Sodium 40 mg DAILY IVP Last administered on 03/01/25at 10:20; Start 03/01/25 at 09:00; Stop 03/31/25 at 08:59 Nitroglycerin 0.4 mg AD PRN SL; Start 03/01/25 at 01:30; Stop 03/31/25 at 01:29 Insulin Human Regular INSULIN SLIDING SCAL... ACHS SQ Last administered on 03/02/25at 06:42; Start 03/01/25 at 07:30; Stop 03/31/25 at 07:29 Dextrose 50 ml AD PRN IV; Start 03/01/25 at 04:30; Stop 03/31/25 at 04:29 Glucagon 1 mg AD PRN IM; Start 03/01/25 at 04:30; Stop 03/31/25 at 04:29 Magnesium Sulfate 50 ml @ 0 mls/hr PROTOCOL PRN IV; Start 03/01/25 at 04:30; Stop 03/31/25 at 04:29 Potassium Chloride 100 ml @ 100 mls/hr AD PRN IV; Start 03/01/25 at 04:30; Stop 03/31/25 at 04:29 Potassium Chloride 20 meq AD PRN PO; Start 03/01/25 at 04:30; Stop 03/31/25 at 04:29 Potassium Chloride 20 meq AD PRN PO Last administered on 03/02/25at 06:44; Start 03/01/25 at 04:30; Stop 03/31/25 at 04:29 Atorvastatin Calcium 40 mg DAILY PO; Start 03/02/25 at 09:00; Stop 04/01/25 at 08:59 Carvedilol 6.25 mg BID PO Last administered on 03/01/25at 21:17; Start 03/01/25 at 21:00; Stop 03/31/25 at 20:59 Isosorbide Mononitrate 30 mg DAILY PO; Start 03/02/25 at 09:00; Stop 04/01/25 at 08:59 Latanoprost 1 DROP HS OP; Start 03/01/25 at 21:00; Stop 03/31/25 at 20:59 Losartan Potassium 25 mg DAILY PO; Start 03/02/25 at 09:00; Stop 04/01/25 at 08:59 Clonazepam 1 mg TID PRN PO; Start 03/01/25 at 10:00; Stop 03/31/25 at 09:59 Home Med (Lamotrigine 200MG ER TAB) DAILY PO; Start 03/02/25 at 09:00; Stop 04/01/25 at 08:59 Quetiapine Fumarate 400 mg HS PO Last administered on 03/01/25at 21:17; Start 03/01/25 at 21:00; Stop 03/31/25 at 20:59 Home Med (Venlafaxine HCl ER) 225MG... DAILY PO; Start 03/02/25 at 09:00; Stop 04/01/25 at 08:59 Iron Sucrose 200 mg ONCE ONCE IV Last administered on 03/01/25at 15:45; Start 03/01/25 at 11:00; Stop 03/01/25 at 11:15; Status DC Iohexol 75 ml STK-MED ONCE IV; Start 03/01/25 at 14:59; Stop 03/01/25 at 14:59; Status DC Iron Sucrose 100 mg STK-MED ONCE .ROUTE; Start 03/01/25 at 15:23; Stop 03/01/25 at 15:23; Status DC MICHAEL DEE MD Mar 02, 2025 09:01
[2025-03-02] MEDS: ISOSORBIDE MONO 30MG SR TAB PO SCH (09:07)
[2025-03-02 12:00] VITALS: BP 125/69; PULSE 76; RESP 20; TEMP 97.9
--- NOTE | 2025-03-02 13:37 | NUR ---
TAKEN TO CT VIA W/C. INFORMED TELEMONITOR
[2025-03-02] MEDS ORDERED: IOHEXOL-350 75 ML VIAL IV ONE (13:38)
--- NOTE | 2025-03-02 15:52 | PN ---
[facility] PROGRESS NOTE Date of Service: Mar 02, 2025 Time of Service: 15:44 HISTORY OF PRESENT ILLNESS: This is a 70-year-old Chilean speaking male bilaterally hard of hearing with past medical history diabetes type 2, hypertension, liver disease, hyperlipidemia ,osteoarthritis and peripheral arterial disease who presented to the ED as referred by Dr. Martinez to be evaluated for increased D-dimer ,chest pain and shortness of breath on going for 1 week.Patient reportedly had a right shoulder [place]plasty on 02/17/2025 [place] [facility] [place] was complicated by surgical site infection and upon discharge D-dimer was elevated but upper extremity doppler was negative with DVT.The patient is wearing an immobilizer sling to right arm. Patient has a D-dimer of 3.62 and troponin of 21 drawn at his clinic and patient was then advised to come to the ED for evaluation. Seen and examined patient in the ER,awake,alert and coherent.Patient reports chest pain and shortness of breath are triggered with minimal exertion.No diaphoresis no radiation of pain.Patient denies fever,chills,cough,palpitation,nausea,vomiting and abdominal pain. Latest vital signs temperature 98.4, heart rate 86, blood pressure 132/68 saturation 98% on room air. Labs: Hemoglobin 7.4, hematocrit 23, platelet count 209. BUN 22, random glucose 231 troponin seven and seven the rest of the chemistry result is unremarkable. ECG result revealed sinus rhythm heart rate 79. Chest x-ray result revealed no acute cardiopulmonary process is evident. SUBJECTIVE: 03/01/25: Patient was seen and evaluated on room 312 along with his bedside. Patient reports that patient had chest pain with exertion 2 days ago. Patient currently denies any chest pain, shortness of breath and b/l lower extremity pain. patient denies any fever or chills, cough, palpitation, nausea, vomiting and abdominal pain. D-Dimer was elevated - 3550. Other pertinent labs today Hb-7.3 03/02/25: Patient was seen and evaluated on room 312. Patient doesn't have any active complaints. Patient denies any chest pain, shortness of breath. patient denies any fever or chills, cough, palpitation, nausea, vomiting and abdominal pain. Hematology was consulted for anemia and they recommended continuing the patient on IV Venofer. REVIEW OF SYSTEMS CONSTITUTIONAL: Denies fevers, chills, or night sweats. No unintentional weight loss reported. NEUROLOGICAL: Denies headache, amaurosis fugax, motor weakness, sensory deficit, vertigo/spinning sensation, gait abnormalities, or tremors. ENT: No hearing loss, otalgia, otorrhea, rhinitis, rhinorrhea, hoarseness, or sore throat. CARDIOVASCULAR: Chest pain on exertion Denies dyspnea on exertion, orthopnea, paroxysmal nocturnal dyspnea, palpitations, life-threatening arrhythmias, claudication. PULMONARY: Shortness of breath on exertion Denies cough, phlegm/sputum, hemoptysis, pleuritic chest pain. SLEEP: Denies morning headaches, daytime somnolence or napping. Denies difficu lty falling asleep, staying asleep, waking from sleep. Denies knowledge of snoring. GASTROINTESTINAL: Denies any type of dysphagia to either liquids or solids. Denies nausea, vomiting, pyrosis, early satiety, abdominal pain, diarrhea, constipation, or changes in stool consistency or caliber. Denies coffee-ground emesis, hematemesis, hematochezia, or melanotic stools. GENITOURINARY: Denies frequency, urgency, nocturia, hematuria or incontinence (Storage/Irritative symptoms.) Low urinary stream, straining to void, urinary intermittency or hesitancy, splitting of the voiding stream, terminal dribbling. ENDOCRINOLOGIC: Denies polyuria, polydipsia, polyphagia or heat/cold intol erances. HEMATOLOGIC: Denies thrombophilia/previous clots, or coagulopathy/bleeding disorders. ONCOLOGIC: Denies personal history of malignancy. DERMATOLOGIC: Denies rashes or pruritus. PSYCHIATRIC: Denies any suicidal or homicidal ideation. Denies hallucinations. PHYSICAL EXAM GENERAL APPEARANCE: The patient is awake, alert, and oriented, in no acute cardiopulmonary distress. NEUROLOGICAL: Cranial nerves II-XII grossly intact. Motor is 5/5 in bilateral upper and lower extremities proximal to distal. No sensory deficits. HEENT: Face is symmetric. Pupils are equal and reactive. Extraocular movements are intact. NECK: Supple. No JVD. No thyromegaly. No submental, submandibular, pre- /postauricular, occipital or supraclavicular lymphadenopathy. CHEST: Normal chest expansion. No Telemetry. LUNGS: Absence of any rales, rhonchi or any wheezing. CARDIOVASCULAR: Regular. S1 and S2 normal. No appreciable rubs, murmurs or gallops. ABDOMEN: Soft, nontender, and nondistended. There is no rebound, voluntary guarding, or rigidity. : Deferred. No Lester. EXTREMITIES: Non-edematous and not cyanotic. No clubbing. Good capillary refill. SKIN: No skin breakdown. Vital Signs (last 8hr) Date Time Temp Pulse Resp B/P (MAP) Pulse Ox O2 Delivery O2 Flow Rate FiO2 03/02/25 12:00 97.9 76 20 125/69 100 Room Air 03/02/25 09:08 112/69 03/02/25 08:00 97.9 75 20 112/69 100 Room Air 03/02/25 07:45 98 Room Air* 0 21 LABS: Laboratory: Test 03/02/25 11:03 03/02/25 06:15 03/02/25 04:48 03/01/25 13:10 Range/Units Whole Blood Glucose 273 H 70-110 MG/DL Urine Color LIGHT-YELLOW YELLOW Urine Appearance CLEAR CLEAR Urine pH 6.0 5.0-8.0 Urine Specific [place] 1.012 1.001-1.031 Urine Protein NEGATIVE NEGATIVE mg/dL Urine Glucose (UA) 150 H NEGATIVE mg/dL Urine Ketones NEGATIVE NEGATIVE mg/dL Urine Occult Blood NEGATIVE NEGATIVE Urine Nitrate NEGATIVE NEGATIVE Urine Bilirubin NEGATIVE NEGATIVE mg/dL Urine Urobilinogen 0.2 0.2-1.0 mg/dL Urine Leukocyte Esterase NEGATIVE NEGATIVE Laila/uL Urine RBC 0-1 0-1 /HPF Urine WBC 0-1 0-1 /HPF Urine Squamous Epithelial Cells RARE 0-2 /HPF Urine Bacteria None None Seen /HPF Stool Occult Blood NEGATIVE NEGATIVE White Blood Count 6.5 4.8-10.8 K/uL Red Blood Count 2.79 L 4.50-6.20 MIL/uL Hemoglobin 8.0 L 14.0-18.0 g/dL Hematocrit 24.9 L 42-54 % Mean Corpuscular Volume 89.2 79-99 fL Mean Corpuscular Hemoglobin 28.7 27.0-33.0 pg Mean Corpuscular Hemoglobin Concent 32.1 32.0-36.0 g/dL Red Cell Distribution Width 13.3 11.0-15.5 % Platelet Count 226 130-400 K/uL Mean Platelet Volume 10.5 7.5-10.5 fL Immature Granulocyte % (Auto) 0.2 0-1 % Neutrophils (%) (Auto) 68.4 40.0-77.0 % Lymphocytes (%) (Auto) 20.9 L 21.0-51.0 % Monocytes (%) (Auto) 7.6 3.0-13.0 % Eosinophils (%) (Auto) 2.3 0.0-8.0 % Basophils (%) (Auto) 0.6 0.0-5.0 % Neutrophils # (Auto) 4.4 1.8-7.7 K/uL Lymphocytes # (Auto) 1.4 1.0-4.8 K/uL Monocytes # (Auto) 0.5 0.1-1.0 K/uL Eosinophils # (Auto) 0.15 0.00-0.70 K/uL Basophils # (Auto) 0.04 0.00-0.20 K/uL Absolute Immature Granulocyte (auto 0.01 0-1 K/uL Nucleated Red Blood Cells 0.0 0.0-0.19 % Sodium Level 141 136-145 mmol/L Potassium Level 3.5 3.5-5.1 mmol/L Chloride Level 107 101-111 mmol/L Carbon Dioxide Level 25 21-32 mmol/L Blood Urea Nitrogen 14 7-18 mg/dL Creatinine 1.2 0.5-1.3 mg/dL Glomerular Filtration Rate Calc 65 >90 mL/min Random Glucose 179 H 70-105 mg/dL Total Calcium 9.0 8.5-10.1 mg/dL Troponin I High Sensitivity 10 4-75 ng/L Test 03/01/25 07:07 03/01/25 05:00 02/28/25 21:00 Range/Units D-Dimer Quantitative (PE/DVT) 3550 *H 0-500 ng/mL Lactate Dehydrogenase 318 H 81-234 U/L Iron Level 33 #L 65-175 mcg/dL Total Iron Binding Capacity 196 L 250-450 mcg/dL Percent Iron Saturation 16.8 L 30-44 % Total Bilirubin 0.6 0.2-1.0 mg/dL Aspartate Amino Transf (AST/SGOT) 23 10-37 U/L Alanine Aminotransferase (ALT/SGPT) 32 12-78 U/L Alkaline Phosphatase 121 50-136 U/L B-Type Natriuretic Peptide 262 H 0-100 pg/mL Total Protein 6.9 6.0-8.3 g/dL Albumin 3.1 L 3.5-5.0 g/dL Thyroid Stimulating Hormone (TSH) 1.80 # 0.36-3.74 uIU/mL Total Creatine Kinase 143 # 21-232 U/L Current Medications Medications (Trade) Dose Ordered Sig/Venkat Route PRN Reason Start Time Stop Time Status Last Admin Dose Admin Atorvastatin Calcium (LIPItor 40MG) 40 mg DAILY PO 03/02/25 09:00 04/01/25 08:59 03/02/25 09:07 40 MG Carvedilol (Coreg 6.25MG) 6.25 mg BID PO 03/01/25 21:00 03/31/25 20:59 03/02/25 09:08 6.25 MG Clonazepam (KLONopin 1MG TAB) 1 mg TID PRN PO ANXIETY/AGITATION 03/01/25 10:00 03/31/25 09:59 Dextrose (D50w) 50 ml AD PRN IV HYPOGLYCEMIA PROTOCOL 03/01/25 04:30 03/31/25 04:29 Glucagon (Glucagon 1mg Kit) 1 mg AD PRN IM HYPOGLYCEMIA PROTOCOL 03/01/25 04:30 03/31/25 04:29 Home Med (Home Medication) (Lamotrigine 200MG ER TAB) DAILY PO 03/02/25 09:00 04/01/25 08:59 Home Med (Home Medication) (Venlafaxine HCl ER) 225MG... DAILY PO 03/02/25 09:00 04/01/25 08:59 Insulin Human Regular (humuLIN R 100 UNIT/ML 3ML) INSULIN SLIDING SCAL... ACHS SQ 03/01/25 07:30 03/31/25 07:29 03/02/25 12:09 5 UNIT Iron Sucrose (VenoFER) 200 mg ONCE IV 03/02/25 11:00 03/02/25 15:00 DC 03/02/25 12:11 200 MG Isosorbide Mononitrate (Imdur 30mg Sr) 30 mg DAILY PO 03/02/25 09:00 04/01/25 08:59 03/02/25 09:07 30 MG Latanoprost (Xalatan) 1 DROP HS OP 03/01/25 21:00 03/31/25 20:59 Losartan Potassium (CozAAR 25MG TAB) 25 mg DAILY PO 03/02/25 09:00 04/01/25 08:59 03/02/25 09:08 25 MG Magnesium Sulfate 50 ml @ 0 mls/hr PROTOCOL PRN IV OTHER [SEE ORDER COMMENTS] 03/01/25 04:30 03/31/25 04:29 Nitroglycerin (Nitrostat) 0.4 mg AD PRN SL CHEST PAIN 03/01/25 01:30 03/31/25 01:29 Ondansetron HCl (zoFRAN 4MG INJ) 4 mg Q6H PRN IV NAUSEA/VOMITING 03/01/25 01:30 03/31/25 01:29 Pantoprazole Sodium (PROTonix 40MG INJ) 40 mg DAILY IVP 03/01/25 09:00 03/31/25 08:59 03/02/25 09:08 40 MG Potassium Chloride 100 ml @ 100 mls/hr AD PRN IV POTASSIUM PROTOCOL 03/01/25 04:30 03/31/25 04:29 Potassium Chloride (K-Dur/Klor-Con 20meq) 20 meq AD PRN PO POTASSIUM PROTOCOL 03/01/25 04:30 03/31/25 04:29 03/02/25 09:08 20 MEQ Potassium Chloride (KCl 10% Elixir 20meq/15ml) 20 meq AD PRN PO POTASSIUM PROTOCOL 03/01/25 04:30 03/31/25 04:29 Quetiapine Fumarate (SEROquel 100 mg TAB) 400 mg HS PO 03/01/25 21:00 03/31/25 20:59 03/01/25 21:17 400 MG DIAGNOSTICS / RADIOLOGY: [place] [address] IMAGING REPORT Signed PATIENT: [place] JO MR#: [id number] : 1955 SEX: M AGE: 70 LOCATION: 3BH ORDER 2 STATUS: ADM IN REPORT#: [id number] SERVICE 3 REASON: chest pain ORDERING PHYSICIAN: DONDON,BERNY P CAR SCRUBBER PROCEDURE: ECHO CMP - ECHO 2-D COMPLETE APPROVED REPORT EXAM: Two-dimensional and M-mode echocardiogram with Doppler and color Doppler. INDICATION ICD: Chest Pain 2D Dimensions RVDd 4.1 cm LVEF(%) 65.6 (>50%) LVED Vol(simp.) 80.0 mL IVSd 0.9 (0.7-1.1cm) FS(%) 36 % LVES Vol(simp.) 36.0 mL LVDd 4.9 (3.8-5.6cm) LA (2D) 4.4 (1.6-4.0cm) LVEF(%, simp.) 55 % PWd 1.1 (0.7-1.1cm) Ao Root(2D) 2.7 (2.0-3.7cm) LA ESV INDEX (BP) 60.00 mL/m2 LVDs 3.1 (2.5-4.0cm) LVOT diam 2.2 (1.8-2.4cm) IVC diam 1.6 cm Deformation Strain Apical 4 -20.1 % Apical 2 -15.5 % Apical 3 -17.9 % Global Strain -17.9 % M-Mode Dimensions EPSS 0.5 cm LA (MM) 4.4 (1.6-4.0cm) Ao Root(MM) 2.8 (2.0-3.7cm) Aortic Valve AoV Vmax 1.6 m/s Ao Peak GR 10.7 mmHg LVOT Vmax 1.2 m/s AoV VTI 0.4 m Ao Mean GR 6.0 mmHg LVOT VTI 0.25 m JENNIFER (VMAX) 2.72 cm2 JENNIFER (VTI) 2.6 cm2 Mitral Valve MV E Vmax 133.1 cm/s DECEL Time 272 ms MV A Vmax 79.3 cm/s P 1/2 T 78 ms E/A ratio 1.7 MVA (PHT) 2.8 cm2 TDI E/E' Medial 14.4 E/E' Lateral 11.4 Medial E' Peak V 9.25 cm/s Lateral E' Peak V 11.70 cm/s Pulmonary Valve PV Vmax 1.0 m/s PV VTI 0.24 m PV Mean GR 2.3 mmHg PV Peak GR 3.9 mmHg Tricuspid Valve TR Vmax 2.8 m/s RVSP 25.6 mmHg TR Peak GR 33.9 mmHg Left Ventricle The left ventricle is normal size. No regional wall motion abnormalities noted. Mild concentric left ventricular hypertrophy. Left ventricular systolic function is normal, estimated LVEF is 55 to 60%. Stage II, diastolic dysfunction. Right Ventricle The right ventricle is normal size. The right ventricular systolic function is normal. Atria The left atrium is severely dilated, 60 mL/m. The right atrium size is normal. Aortic Valve Aortic valve is trileaflet. The leaflets are mildly thickened and calcified. Trace aortic regurgitation. There is no aortic valvular stenosis. Mitral Valve The mitral valve is normal in structure and function. There is a calcified, echodense mass, seen on the anterior leaflet of the mitral valve. Trace mitral regurgitation. There is no mitral valve stenosis. Tricuspid Valve The tricuspid valve is normal in structure. Mild tricuspid regurgitation. RVSP is 27 mmHg. Pulmonic Valve Pulmonic valve is not well visualized. Great Vessels The aortic root is normal in size. The IVC is normal in size and collapses >50% with inspiration. Pericardium There is no pericardial effusion. Conclusion The left atrium is severely dilated, 60 mL/m. Mild concentric left ventricular hypertrophy. No regional wall motion abnormalities noted. Left ventricular systolic function is normal, estimated LVEF is 55 to 60%. Stage II, diastolic dysfunction. Trace aortic regurgitation. The mitral valve is normal in structure and function. There is a calcified, echodense mass, seen on the anterior leaflet of the mitral valve. Trace mitral regurgitation. Mild tricuspid regurgitation. PASP is 30 mmHg. There is no pericardial effusion. DICTATED BY: JOSE PERALES MD DATE: 03/01/25 [id number] ELECTRONICALLY SIGNED BY: JOSE PERALES MD DATE: 03/01/25 [id number] ASSESSMENT: Acute symptomatic anemia POA Chest pain unspecified POA Recent right shoulder arthroplasty 02/17/2025 POA Diabetes with hyperglycemia POA PLAN: Chest pain unspecified POA: * On presentation D-dimer was elevated-3550. CXR was unremarkable. Troponin- 7, BNP-262. * Chest CT with contrast was ordered. * 2D-ECHO was ordered, results show LVEF of 55-60%, Left atrium severely dilated, Mild concentric LVH. * Continuing on Coreg 6.25mg, Isosorbide mononitrate 30mg. Acute symptomatic anemia POA: * On presentation Hb-7.3, Iron - 33, TIBC-196, %saturation-16.8. * Patient was continuing on IV Venofer 200mg. * LDH-318 * Occult blood stool test was negative * GI was consulted for suspected GI bleed for cause of anemia. * Hematology was consulted, will follow their recommendations. ATTESTATION BY PHYSICIAN I have seen and examined the patient. I reviewed the documentation, medical decision making, and treatment plan as noted by the resident physician above. I agree with the findings and plan of care. NICK OMER MD, SHAJI MD Mar 02, 2025 15:51
[2025-03-02 16:00] VITALS: BP 117/68; PULSE 72; RESP 20; TEMP 97.6
--- NOTE | 2025-03-02 16:19 | HMCIMG ---
EXAM: CTA Chest with and without Intravenous Contrast for PE evaluation CLINICAL HISTORY: Elevated D-dimer, chest pain TECHNIQUE: Axial CTA images of the chest with and without intravenous contrast using a pulmonary embolism protocol. Multiplanar reconstructed images were created and reviewed. CONTRAST: None. was administered without incident. COMPARISON: None provided. FINDINGS: PULMONARY ARTERIES: No evidence of central or segmental pulmonary embolism is seen. AORTA: There is no evidence for aneurysm or dissection of the thoracic aorta. LUNGS: Bibasilar atelectasis. PLEURAL SPACES: No pleural effusion seen. No pneumothorax evident. HEART: Heart size is within normal limits. No significant pericardial effusion. LYMPH NODES: No lymphadenopathy is evident. BONES: Soft tissue gas noted anterior to the right shoulder. Recommend correlation for cellulitis or abscess. Flattening may also be secondary to recent surgical intervention if there was 1 performed of the right shoulder. UPPER ABDOMEN: Cholelithiasis in the gallbladder. IMPRESSION: 1. Bibasilar atelectasis. 2. Cholelithiasis in the gallbladder. 3. Soft tissue gas noted anterior to the right shoulder. Recommend correlation for cellulitis or abscess. Flattening may also be secondary to recent surgical intervention if there was 1 performed of the right shoulder. 4. No CT evidence of pulmonary embolism. /[place]
--- NOTE | 2025-03-02 18:13 | DS ---
Discharge Summary Hospital Course Summary: This 70-year-old German-speaking male with diabetes mellitus type 2, hypertension, liver disease, hyperlipidemia, osteoarthritis, and peripheral arterial disease was admitted on 03/01/2025 for evaluation of elevated D-dimer (3.62 g/mL initially, 3550 ng/mL on admission), elevated troponin (21 ng/mL at clinic, 7 ng/mL on repeat in emergency department), chest pain, and shortness of breath. The patient had recently undergone right shoulder arthroplasty on 02/17/2025 complicated by surgical site infection and presented with one week of exertional chest pain and dyspnea. Initial evaluation in the emergency department revealed significant anemia with hemoglobin 7.4 g/dL and hematocrit 23%. ECG showed normal sinus rhythm without acute ischemic changes. Chest radiograph showed no acute cardiopulmonary process. BNP was 262 pg/mL. Given the patient's chest pain and elevated troponin, a comprehensive cardiac workup was performed. CT chest with contrast on 03/02/2025 showed no evidence of pulmonary embolism, bibasilar atelectasis, cholelithiasis, and soft tissue gas anterior to the right shoulder consistent with recent surgical intervention. Two-dimensional echocardiography revealed left ventricular ejection fraction of 55-60%, severely dilated left atrium, and mild concentric left ventricular hypertrophy. The elevated troponin was attributed to type 2 myocardial injury in the setting of severe anemia and recent surgical stress rather than acute coronary syndrome. The patient was continued on carvedilol 6.25 mg and isosorbide mononitrate 30 mg. The patient presented with acute symptomatic anemia (hemoglobin 7.3 g/dL on admission). Iron studies revealed iron 33 g/dL, TIBC 196 g/dL, and transferrin s aturation 16.8%, consistent with iron deficiency anemia. LDH was 318 U/L. Fecal occult blood testing was negative. The patient was treated with intravenous iron sucrose (Venofer) 200 mg. Both Hematology and Gastroenterology were consulted for further evaluation and management of the anemia. Physical examination revealed no signs of cellulitis or abscess at the right shoulder surgical site, and the patient continued to wear an immobilizer sling to the right arm. CT findings of soft tissue gas were consistent with recent surgical intervention. The patient had hyperglycemia on presentation with random glucose of 231 mg/dL, and diabetes management was continued during hospitalization. The patient's chest pain and dyspnea resolved during hospitalization. He was discharged on 03/02/2025 in stable condition after pulmonary embolism and active infection were ruled out. However, the patient remained in the hospital until 03/03/2025. On 03/03/2025, before the physician could examine the patient, the patient left the hospital. Discharge instructions were given - Follow up with PCP in 2 days. Follow up with Orthopaedic surgery in 1 week. Continue Augmentin 875mg BID for 7 days Continue Ferrous Sulphate 325 mg PO daily or atlernate day if nausea persists for a duration of 6 months Take Folic acid 1mg PO daily OTC Take Vitamin B12 1000mcg PO daily OTC. Look out for warning signs of fever, chills, Redness or pus drainage from right shoulder incision and visit the ER if you see any of the signs above. Digital Account Director(s): Hematology consult was done by Dr. Pitt Assessment 1 severe anemia status post blood transfusion 2. Recent right shoulder arthroplasty 3. Diabetes 4. Chest pain 5. Difficulty of hearing 6. Hypertension 7. Possibility of liver disease Plan 1. Peripheral blood smear showed red blood cells to be microcytic hypochromic red blood cell consistent with iron deficiency anemia.. There was no fragment cell or schistocyte. There is no teardrop cell. There is no rouleaux phenomena. There is no pelger-Huet cell. White blood cell with no blasts. Platelet was normal in morphology and count. 2. There was hypersegmented neutrophils. This patient to be started on folic acid 1 mg p.o. daily and vitamin B12 1000 mcg p.o. daily. 3. This patient already started on IV iron. Patient to receive Venofer 200 mg IV daily for at least 3 days. This patient then will need oral iron tablet every other day for 6 months. 4. This patient have iron deficiency anemia. This patient need to be investigated by GI with possibility of EGD and colonoscopy if not done earlier. 5. There is no need for blood product transfusion at this time. Procedure(s): [place] [address] [place] [id number] IMAGING REPORT Signed PATIENT: [place] JO MR#: [id number] : 1955 SEX: M AGE: 70 LOCATION: [facility] ORDER 48 STATUS: REG ER REPORT#: [id number] SERVICE 47 REASON: chest pain ORDERING PHYSICIAN: MONICA THOMAS MD PROCEDURE: CXR1VW - CHEST 1VW EXAM: CR Chest, 1 view CLINICAL HISTORY: Chest pain. COMPARISON: Chest radiograph dated 12/26/2022. FINDINGS: The lungs show no infiltrates or other acute findings. No pleural effusion or pneumothorax. The cardiomediastinal silhouette is within normal limits. No acute osseous abnormality. A Glenohumeral joint replacement implant is present on the right side. Old healed fractures in the multiple left ribs. IMPRESSION: No acute cardiopulmonary process is evident. Compared to the prior study, there is no significant interval change. /[facility] DICTATED BY: MARCK WALLACE Jr., MD DATE: 02/28/252348 ELECTRONICALLY SIGNED BY: MARCK WALLACE Jr., MD DATE: 02/28/252348 [place] [id number] IMAGING REPORT Signed PATIENT: MONTANA JO MR#: [id number] : 1955 SEX: M AGE: 70 LOCATION: [facility] ORDER 2 STATUS: ADM IN REPORT#: [id number] SERVICE 3 REASON: chest pain ORDERING PHYSICIAN: BERNY GAY PROCEDURE: ECHO CMP - ECHO 2-D COMPLETE APPROVED REPORT EXAM: Two-dimensional and M-mode echocardiogram with Doppler and color Doppler. INDICATION ICD: Chest Pain 2D Dimensions RVDd 4.1 cm LVEF(%) 65.6 (>50%) LVED Vol(simp.) 80.0 mL IVSd 0.9 (0.7-1.1cm) FS(%) 36 % LVES Vol(simp.) 36.0 mL LVDd 4.9 (3.8-5.6cm) LA (2D) 4.4 (1.6-4.0cm) LVEF(%, simp.) 55 % PWd 1.1 (0.7-1.1cm) Ao Root(2D) 2.7 (2.0-3.7cm) LA ESV INDEX (BP) 60.00 mL/m2 LVDs 3.1 (2.5-4.0cm) LVOT diam 2.2 (1.8-2.4cm) IVC diam 1.6 cm Deformation Strain Apical 4 -20.1 % Apical 2 -15.5 % Apical 3 -17.9 % Global Strain -17.9 % M-Mode Dimensions EPSS 0.5 cm LA (MM) 4.4 (1.6-4.0cm) Ao Root(MM) 2.8 (2.0-3.7cm) Aortic Valve AoV Vmax 1.6 m/s Ao Peak GR 10.7 mmHg LVOT Vmax 1.2 m/s AoV VTI 0.4 m Ao Mean GR 6.0 mmHg LVOT VTI 0.25 m JENNIFER (VMAX) 2.72 cm2 JENNIFER (VTI) 2.6 cm2 Mitral Valve MV E Vmax 133.1 cm/s DECEL Time 272 ms MV A Vmax 79.3 cm/s P 1/2 T 78 ms E/A ratio 1.7 MVA (PHT) 2.8 cm2 TDI E/E' Medial 14.4 E/E' Lateral 11.4 Medial E' Peak V 9.25 cm/s Lateral E' Peak V 11.70 cm/s Pulmonary Valve PV Vmax 1.0 m/s PV VTI 0.24 m PV Mean GR 2.3 mmHg PV Peak GR 3.9 mmHg Tricuspid Valve TR Vmax 2.8 m/s RVSP 25.6 mmHg TR Peak GR 33.9 mmHg Left Ventricle The left ventricle is normal size. No regional wall motion abnormalities noted. Mild concentric left ventricular hypertrophy. Left ventricular systolic function is normal, estimated LVEF is 55 to 60%. Stage II, diastolic dysfunction. Right Ventricle The right ventricle is normal size. The right ventricular systolic function is normal. Atria The left atrium is severely dilated, 60 mL/m. The right atrium size is normal. Aortic Valve Aortic valve is trileaflet. The leaflets are mildly thickened and calcified. Trace aortic regurgitation. There is no aortic valvular stenosis. Mitral Valve The mitral valve is normal in structure and function. There is a calcified, echodense mass, seen on the anterior leaflet of the mitral valve. Trace mitral regurgitation. There is no mitral valve stenosis. Tricuspid Valve The tricuspid valve is normal in structure. Mild tricuspid regurgitation. RVSP is 27 mmHg. Pulmonic Valve Pulmonic valve is not well visualized. Great Vessels The aortic root is normal in size. The IVC is normal in size and collapses >50% with inspiration. Pericardium There is no pericardial effusion. Conclusion The left atrium is severely dilated, 60 mL/m. Mild concentric left ventricular hypertrophy. No regional wall motion abnormalities noted. Left ventricular systolic function is normal, estimated LVEF is 55 to 60%. Stage II, diastolic dysfunction. Trace aortic regurgitation. The mitral valve is normal in structure and function. There is a calcified, echodense mass, seen on the anterior leaflet of the mitral valve. Trace mitral regurgitation. Mild tricuspid regurgitation. PASP is 30 mmHg. There is no pericardial effusion. DICTATED BY: JOSE PERALES MD DATE: 03/01/25 0744 ELECTRONICALLY SIGNED BY: JOSE PERALES MD DATE: 03/01/[address] [address] IMAGING REPORT Signed PATIENT: [place] JO MR#: [id number] : 1955 SEX: M AGE: 70 LOCATION: [facility] ORDER 1056 STATUS: ADM IN REPORT#: [id number] SERVICE 1055 REASON: Elevated D-dimer, chest pain ORDERING PHYSICIAN: EMILY BLANK MD PROCEDURE: [facility] PE - CT CHEST PE PROTOCOL WWO CONT EXAM: CTA Chest with and without Intravenous Contrast for PE evaluation CLINICAL HISTORY: Elevated D-dimer, chest pain TECHNIQUE: Axial CTA images of the chest with and without intravenous contrast using a pulmonary embolism protocol. Multiplanar reconstructed images were created and reviewed. CONTRAST: None. was administered without incident. COMPARISON: None provided. FINDINGS: PULMONARY ARTERIES: No evidence of central or segmental pulmonary embolism is seen. AORTA: There is no evidence for aneurysm or dissection of the thoracic aorta. LUNGS: Bibasilar atelectasis. PLEURAL SPACES: No pleural effusion seen. No pneumothorax evident. HEART: Heart size is within normal limits. No significant pericardial effusion. LYMPH NODES: No lymphadenopathy is evident. BONES: Soft tissue gas noted anterior to the right shoulder. Recommend correlation for cellulitis or abscess. Flattening may also be secondary to recent surgical intervention if there was 1 performed of the right shoulder. UPPER ABDOMEN: Cholelithiasis in the gallbladder. IMPRESSION: 1. Bibasilar atelectasis. 2. Cholelithiasis in the gallbladder. 3. Soft tissue gas noted anterior to the right shoulder. Recommend correlation for cellulitis or abscess. Flattening may also be secondary to recent surgical intervention if there was 1 performed of the right shoulder. 4. No CT evidence of pulmonary embolism. /[facility] DICTATED BY: PEGGY MILLAN DO DATE: 03/02/251717 ELECTRONICALLY SIGNED BY: PEGGY MILLAN DO DATE: 03/02/251717 Assessment/Plan: ASSESSMENT: Acute symptomatic anemia POA Chest pain unspecified POA Recent right shoulder arthroplasty 02/17/2025 POA Diabetes with hyperglycemia POA Discharge Instructions: Follow up with PCP in 2 days. Follow up with Orthopaedic surgery in 1 week. Continue Augmentin 875mg BID for 7 days Continue Ferrous Sulphate 325 mg PO daily or atlernate day if nausea persists for a duration of 6 months Take Folic acid 1mg PO daily OTC Take Vitamin B12 1000mcg PO daily OTC. Look out for warning signs of fever, chills, Redness or pus drainage from right shoulder incision and visit the ER if you see any of the signs above. Home Medications: Active Scripts Ferrous Sulfate (Iron) 325 Mg (65 Mg Iron) Tablet, 1 TAB PO DAILY for HANNY for 30 Days, #30 TAB 0 Refills Prov:PARKER NIEVES MD 03/03/25 Ketorolac Tromethamine (Ketorolac Tromethamine) 10 Mg Tablet, 1 TAB PO BID for pain for 3 Days, #6 TAB 0 Refills Prov:TIAN JO 9/2/25 Baclofen (Baclofen) 10 Mg Tablet, 1 TAB PO BID for 5 Days, #10 TAB 0 Refills Prov:TIAN JO PAC 11/08/24 Ibuprofen (Ibuprofen) 600 Mg Tablet, 600 MG PO Q6H PRN for PAIN, #30 TAB Prov:JENNIFRE COOK RADIAL ROUTER OPERATOR 03/17/23 Cephalexin Monohydrate (Keflex) 500 Mg Cap, 500 MG PO TID for 5 Days, #15 CAP Prov:COOK,JENNIFER RADIAL ROUTER OPERATOR 03/17/23 Lidocaine (Lidoderm Patch 5%) 1 Patch Patch, 1 PATCH TD DAILY for 30 Days, #30 ADH.PATCH 0 Refills Prov:STEVIE TORRES MD 07/28/22 Reported Medications Isosorbide Mononitrate (Isosorbide Mononitrate ER) 30 Mg Tab.er.24h, 1 TAB PO DAILY for 30 Days, #30 TAB 0 Refills 03/01/25 Carvedilol (Carvedilol) 6.25 Mg Tablet, 1 TAB PO BID for 30 Days, #60 TAB 0 Refills 03/01/25 Atorvastatin Calcium (Atorvastatin Calcium) 40 Mg Tablet, 1 TAB PO DAILY for 30 Days, #30 TAB 0 Refills 03/01/25 Lamotrigine (Lamotrigine) 200 Mg Tab.er.24, 1 TAB PO DAILY for 30 Days, #30 TAB 0 Refills 03/01/25 Quetiapine Fumarate (Quetiapine Fumarate) 400 Mg Tablet, 1 TAB PO HS for 30 Days, #30 TAB 0 Refills 03/01/25 Clonazepam (Clonazepam) 1 Mg Tab.rapdis, 1 TAB PO TID PRN for ANXIETY/AGITATION for 30 Days, #90 TAB 0 Refills 03/01/25 Venlafaxine HCl (Venlafaxine HCl ER) 225 Mg Tab.er.24, 2 TAB PO DAILY for 30 Days, #30 TAB 0 Refills 03/01/25 Latanoprost (Latanoprost) 0.005 % Drops, 1 DROP OP HS, ML 0 Refills 03/01/25 Losartan Potassium (Losartan Potassium) 25 Mg Tablet, 1 TAB PO DAILY for 30 Days, #30 TAB 0 Refills 03/01/25 Insulin NPL/Insulin Lispro (Humalog Mix 75-25 Kwikpen) 100 Unit/1 Ml Insuln.pen, 12 UNITS SQ DAILYDINNER 11/28/21 Insulin Lispro Protamin/Lispro (Insulin Lispro Mix 75-25 Kwkpn) 100 Unit/1 Ml Insuln.pen, 25 UNIT SQ DAILYBKFST 11/28/21 Atorvastatin Calcium (LIPITOR) 40 Mg Tablet, 40 MG PO DAILY, TAB 11/22/21 Lamotrigine (Lamotrigine) 150 Mg Tablet, 300 MG PO DAILY, TAB 11/22/21 Quetiapine Fumarate (Seroquel) 300 Mg Tab, 300 MG PO HS, TAB 11/22/21 Lisinopril (Lisinopril) 10 Mg Tablet, 10 MG PO AM, TAB 12/26/15 Metformin HCl (Metformin HCl) 500 Mg Tablet, 500 MG PO BIDAC, TAB 12/26/15 Discontinued Scripts Vancomycin HCl (Vancocin Oral Soln 125 mg) 50 Mg/Ml Soln, 125 MG PO Q6H for 3 Days, #1500 ML 0 Refills Prov:KEREN HINES MD 12/01/21 New Medications: Ferrous Sulfate (Iron) 325 Mg (65 Mg Iron) Tablet 1 TAB PO DAILY for HANNY for 30 Days, #30 TAB 0 Refills Continued Medications: Atorvastatin Calcium (Lipitor) 40 Mg Tablet 40 MG PO DAILY, TAB Atorvastatin Calcium (Atorvastatin Calcium) 40 Mg Tablet 1 TAB PO DAILY for 30 Days, #30 TAB 0 Refills Baclofen (Baclofen) 10 Mg Tablet 1 TAB PO BID for 5 Days, #10 TAB 0 Refills Carvedilol (Carvedilol) 6.25 Mg Tablet 1 TAB PO BID for 30 Days, #60 TAB 0 Refills Cephalexin Monohydrate (Keflex) 500 Mg Cap 500 MG PO TID for 5 Days, #15 CAP Clonazepam (Clonazepam) 1 Mg Tab.rapdis 1 TAB PO TID PRN for ANXIETY/AGITATION for 30 Days, #90 TAB 0 Refills Ibuprofen (Ibuprofen) 600 Mg Tablet 600 MG PO Q6H PRN for PAIN, #30 TAB Insulin Lispro Protamin/Lispro (Insulin Lispro Mix 75-25 Kwkpn) 100 Unit/1 Ml Insuln.pen 25 UNIT SQ DAILYBKFST Insulin NPL/Insulin Lispro (Humalog Mix 75-25 Kwikpen) 100 Unit/1 Ml Insuln.pen 12 UNITS SQ DAILYDINNER Isosorbide Mononitrate (Isosorbide Mononitrate ER) 30 Mg Tab.er.24h 1 TAB PO DAILY for 30 Days, #30 TAB 0 Refills Ketorolac Tromethamine (Ketorolac Tromethamine) 10 Mg Tablet 1 TAB PO BID for pain for 3 Days, #6 TAB 0 Refills Lamotrigine (Lamotrigine) 150 Mg Tablet 300 MG PO DAILY, TAB Lamotrigine (Lamotrigine) 200 Mg Tab.er.24 1 TAB PO DAILY for 30 Days, #30 TAB 0 Refills Latanoprost (Latanoprost) 0.005 % Drops 1 DROP OP HS, ML 0 Refills Lidocaine (Lidoderm Patch 5%) 1 Patch Patch 1 PATCH TD DAILY for 30 Days, #30 ADH.PATCH 0 Refills Lisinopril (Lisinopril) 10 Mg Tablet 10 MG PO AM, TAB Losartan Potassium (Losartan Potassium) 25 Mg Tablet 1 TAB PO DAILY for 30 Days, #30 TAB 0 Refills Metformin HCl (Metformin HCl) 500 Mg Tablet 500 MG PO BIDAC, TAB Quetiapine Fumarate (Seroquel) 300 Mg Tab 300 MG PO HS, TAB Quetiapine Fumarate (Quetiapine Fumarate) 400 Mg Tablet 1 TAB PO HS for 30 Days, #30 TAB 0 Refills Venlafaxine HCl (Venlafaxine HCl ER) 225 Mg Tab.er.24 2 TAB PO DAILY for 30 Days, #30 TAB 0 Refills Discontinued Medications: Vancomycin HCl (Vancocin Oral Soln 125 mg) 50 Mg/Ml Soln 125 MG PO Q6H for 3 Days, #1500 ML 0 Refills ATTESTATION BY PHYSICIAN I have seen and examined the patient. I reviewed the documentation, medical decision making, and treatment plan as noted by the resident physician above. I agree with the findings and plan of care. NICK OMER MD, SHAJI MD Mar 02, 2025 18:13
--- NOTE | 2025-03-02 19:14 | NUR ---
DC INSTRUCTIONS GIVEN TO PATIENT/DAUGHTER AND ACKNOWLEDGED. IV REMOVED
[2025-03-03] MEDS ORDERED: FERR-82 PO (08:43)
--- NOTE | 2025-03-03 15:27 | PN ---
[facility] PROGRESS NOTE Date of Service: Mar 03, 2025 Time of Service: 15:25 HISTORY OF PRESENT ILLNESS: This is a 70-year-old Thai speaking male bilaterally hard of hearing with past medical history diabetes type 2, hypertension, liver disease, hyperlipidemia ,osteoarthritis and peripheral arterial disease who presented to the ED as referred by Dr. Martinez to be evaluated for increased D-dimer ,chest pain and shortness of breath on going for 1 week.Patient reportedly had a right shoulder arthroplasty on 02/17/2025 by at [facility] which was complicated by surgical site infection and upon discharge D-dimer was elevated but upper extremity doppler was negative with DVT.The patient is wearing an immobilizer sling to right arm. Patient has a D-dimer of 3.62 and troponin of 21 drawn at his clinic and patient was then advised to come to the ED for evaluation. Seen and examined patient in the ER,awake,alert and coherent.Patient reports chest pain and shortness of breath are triggered with minimal exertion.No diaphoresis no radiation of pain.Patient denies fever,chills,cough,palpitation,nausea,vomiting and abdominal pain. Latest vital signs temperature 98.4, heart rate 86, blood pressure 132/68 saturation 98% on room air. Labs: Hemoglobin 7.4, hematocrit 23, platelet count 209. BUN 22, random glucose 231 troponin seven and seven the rest of the chemistry result is unremarkable. ECG result revealed sinus rhythm heart rate 79. Chest x-ray result revealed no acute cardiopulmonary process is evident. SUBJECTIVE: 03/01/25: Patient was seen and evaluated on room 312 along with his bedside. Patient reports that patient had chest pain with exertion 2 days ago. Patient currently denies any chest pain, shortness of breath and b/l lower extremity pain. patient denies any fever or chills, cough, palpitation, nausea, vomiting and abdominal pain. D-Dimer was elevated - 3550. Other pertinent labs today Hb-7.3 03/02/25: Patient was seen and evaluated on room 312. Patient doesn't have any active complaints. Patient denies any chest pain, shortness of breath. patient denies any fever or chills, cough, palpitation, nausea, vomiting and abdominal pain. Hematology was consulted for anemia and they recommended continuing the patient on IV Venofer. 03/03/25: Patient was discharged in the evening yesterday. Patient was awaiting for transport overnight. In the morning the patient left before we could even examine the patient. REVIEW OF SYSTEMS CONSTITUTIONAL: Denies fevers, chills, or night sweats. No unintentional weight loss reported. NEUROLOGICAL: Denies headache, amaurosis fugax, motor weakness, sensory deficit, vertigo/spinning sensation, gait abnormalities, or tremors. ENT: No hearing loss, otalgia, otorrhea, rhinitis, rhinorrhea, hoarseness, or sore throat. CARDIOVASCULAR: Chest pain on exertion Denies dyspnea on exertion, orthopnea, paroxysmal nocturnal dyspnea, palpitations, life-threatening arrhythmias, claudication. PULMONARY: Shortness of breath on exertion Denies cough, phlegm/sputum, hemoptysis, pleuritic chest pain. SLEEP: Denies morning headaches, daytime somnolence or napping. Denies difficulty falling asleep, staying asleep, waking from sleep. Denies knowledge of snoring. GASTROINTESTINAL: Denies any type of dysphagia to either liquids or solids. Denies nausea, vomiting, pyrosis, early satiety, abdominal pain, diarrhea, constipation, or changes in stool consistency or caliber. Denies coffee-ground emesis, hematemesis, hematochezia, or melanotic stools. GENITOURINARY: Denies frequency, urgency, nocturia, hematuria or incontinence (Storage/Irritative symptoms.) Low urinary stream, straining to void, urinary intermittency or hesitancy, splitting of the voiding stream, terminal dribbling. ENDOCRINOLOGIC: Denies polyuria, polydipsia, polyphagia or heat/cold intolerances. HEMATOLOGIC: Denies thrombophilia/previous clots, or coagulopathy/bleeding disorders. ONCOLOGIC: Denies personal history of malignancy. DERMATOLOGIC: Denies rashes or pruritus. PSYCHIATRIC: Denies any suicidal or homicidal ideation. Denies hallucinations. PHYSICAL EXAM GENERAL APPEARANCE: The patient is awake, alert, and oriented, in no acute cardiopulmonary distress. NEUROLOGICAL: Cranial nerves II-XII grossly intact. Motor is 5/5 in bilateral upper and lower extremities proximal to distal. No sensory deficits. HEENT: Face is symmetric. Pupils are equal and reactive. Extraocular movements are intact. NECK: Supple. No JVD. No thyromegaly. No submental, submandibular, pre- /postauricular, occipital or supraclavicular lymphadenopathy. CHEST: Normal chest expansion. No Telemetry. LUNGS: Absence of any rales, rhonchi or any wheezing. CARDIOVASCULAR: Regular. S1 and S2 normal. No appreciable rubs, murmurs or gallops. ABDOMEN: Soft, nontender, and nondistended. There is no rebound, voluntary guarding, or rigidity. : Deferred. No Lester. EXTREMITIES: Non-edematous and not cyanotic. No clubbing. Good capillary refill. SKIN: No skin breakdown. LABS: Laboratory: Test 03/02/25 17:01 03/02/25 06:15 03/02/25 04:48 Range/Units Whole Blood Glucose 245 H 70-110 MG/DL Urine Color LIGHT-YELLOW YELLOW Urine Appearance CLEAR CLEAR Urine pH 6.0 5.0-8.0 Urine Specific [place] 1.012 1.001-1.031 Urine Protein NEGATIVE NEGATIVE mg/dL Urine Glucose (UA) 150 H NEGATIVE mg/dL Urine Ketones NEGATIVE NEGATIVE mg/dL Urine Occult Blood NEGATIVE NEGATIVE Urine Nitrate NEGATIVE NEGATIVE Urine Bilirubin NEGATIVE NEGATIVE mg/dL Urine Urobilinogen 0.2 0.2-1.0 mg/dL Urine Leukocyte Esterase NEGATIVE NEGATIVE Laila/uL Urine RBC 0-1 0-1 /HPF Urine WBC 0-1 0-1 /HPF Urine Squamous Epithelial Cells RARE 0-2 /HPF Urine Bacteria None None Seen /HPF Stool Occult Blood NEGATIVE NEGATIVE White Blood Count 6.5 4.8-10.8 K/uL Red Blood Count 2.79 L 4.50-6.20 MIL/uL Hemoglobin 8.0 L 14.0-18.0 g/dL Hematocrit 24.9 L 42-54 % Mean Corpuscular Volume 89.2 79-99 fL Mean Corpuscular Hemoglobin 28.7 27.0-33.0 pg Mean Corpuscular Hemoglobin Concent 32.1 32.0-36.0 g/dL Red Cell Distribution Width 13.3 11.0-15.5 % Platelet Count 226 130-400 K/uL Mean Platelet Volume 10.5 7.5-10.5 fL Immature Granulocyte % (Auto) 0.2 0-1 % Neutrophils (%) (Auto) 68.4 40.0-77.0 % Lymphocytes (%) (Auto) 20.9 L 21.0-51.0 % Monocytes (%) (Auto) 7.6 3.0-13.0 % Eosinophils (%) (Auto) 2.3 0.0-8.0 % Basophils (%) (Auto) 0.6 0.0-5.0 % Neutrophils # (Auto) 4.4 1.8-7.7 K/uL Lymphocytes # (Auto) 1.4 1.0-4.8 K/uL Monocytes # (Auto) 0.5 0.1-1.0 K/uL Eosinophils # (Auto) 0.15 0.00-0.70 K/uL Basophils # (Auto) 0.04 0.00-0.20 K/uL Absolute Immature Granulocyte (auto 0.01 0-1 K/uL Nucleated Red Blood Cells 0.0 0.0-0.19 % Sodium Level 141 136-145 mmol/L Potassium Level 3.5 3.5-5.1 mmol/L Chloride Level 107 101-111 mmol/L Carbon Dioxide Level 25 21-32 mmol/L Blood Urea Nitrogen 14 7-18 mg/dL Creatinine 1.2 0.5-1.3 mg/dL Glomerular Filtration Rate Calc 65 >90 mL/min Random Glucose 179 H 70-105 mg/dL Total Calcium 9.0 8.5-10.1 mg/dL Current Medications Medications (Trade) Dose Ordered Sig/Venkat Route PRN Reason Start Time Stop Time Status Last Admin Dose Admin Atorvastatin Calcium (LIPItor 40MG) 40 mg DAILY PO 03/02/25 09:00 03/03/25 08:12 DC 03/02/25 09:07 40 MG Carvedilol (Coreg 6.25MG) 6.25 mg BID PO 03/01/25 21:00 03/03/25 08:12 DC 03/02/25 09:08 6.25 MG Clonazepam (KLONopin 1MG TAB) 1 mg TID PRN PO ANXIETY/AGITATION 03/01/25 10:00 03/03/25 08:12 DC Dextrose (D50w) 50 ml AD PRN IV HYPOGLYCEMIA PROTOCOL 03/01/25 04:30 03/03/25 08:12 DC Glucagon (Glucagon 1mg Kit) 1 mg AD PRN IM HYPOGLYCEMIA PROTOCOL 03/01/25 04:30 03/03/25 08:12 DC Home Med (Home Medication) (Lamotrigine 200MG ER TAB) DAILY PO 03/02/25 09:00 03/03/25 08:12 DC Home Med (Home Medication) (Venlafaxine HCl ER) 225MG... DAILY PO 03/02/25 09:00 03/03/25 08:12 DC Insulin Human Regular (humuLIN R 100 UNIT/ML 3ML) INSULIN SLIDING SCAL... ACHS SQ 03/01/25 07:30 03/03/25 08:12 DC 03/02/25 17:22 4 UNIT Iron Sucrose (VenoFER) 200 mg ONCE IV 03/02/25 11:00 03/02/25 15:00 DC 03/02/25 12:11 200 MG Isosorbide Mononitrate (Imdur 30mg Sr) 30 mg DAILY PO 03/02/25 09:00 03/03/25 08:12 DC 03/02/25 09:07 30 MG Latanoprost (Xalatan) 1 DROP HS OP 03/01/25 21:00 03/03/25 08:12 DC Losartan Potassium (CozAAR 25MG TAB) 25 mg DAILY PO 03/02/25 09:00 03/03/25 08:12 DC 03/02/25 09:08 25 MG Magnesium Sulfate 50 ml @ 0 mls/hr PROTOCOL PRN IV OTHER [SEE ORDER COMMENTS] 03/01/25 04:30 03/03/25 08:12 DC Nitroglycerin (Nitrostat) 0.4 mg AD PRN SL CHEST PAIN 03/01/25 01:30 03/03/25 08:12 DC Ondansetron HCl (zoFRAN 4MG INJ) 4 mg Q6H PRN IV NAUSEA/VOMITING 03/01/25 01:30 03/03/25 08:12 DC Pantoprazole Sodium (PROTonix 40MG INJ) 40 mg DAILY IVP 03/01/25 09:00 03/03/25 08:12 DC 03/02/25 09:08 40 MG Potassium Chloride 100 ml @ 100 mls/hr AD PRN IV POTASSIUM PROTOCOL 03/01/25 04:30 03/03/25 08:12 DC Potassium Chloride (K-Dur/Klor-Con 20meq) 20 meq AD PRN PO POTASSIUM PROTOCOL 03/01/25 04:30 03/03/25 08:12 DC 03/02/25 09:08 20 MEQ Potassium Chloride (KCl 10% Elixir 20meq/15ml) 20 meq AD PRN PO POTASSIUM PROTOCOL 03/01/25 04:30 03/03/25 08:12 DC Quetiapine Fumarate (SEROquel 100 mg TAB) 400 mg HS PO 03/01/25 21:00 03/03/25 08:12 DC 03/01/25 21:17 400 MG DIAGNOSTICS / RADIOLOGY: [ ] ASSESSMENT: Acute symptomatic anemia POA Chest pain unspecified POA Recent right shoulder arthroplasty 02/17/2025 POA Diabetes with hyperglycemia POA PLAN: Chest pain unspecified POA: * On presentation D-dimer was elevated-3550. CXR was unremarkable. Troponin- 7, BNP-262. * Chest CT with contrast was ordered. * 2D-ECHO was ordered, results show LVEF of 55-60%, Left atrium severely dilated, Mild concentric LVH. * Continuing on Coreg 6.25mg, Isosorbide mononitrate 30mg. Acute symptomatic anemia POA: * On presentation Hb-7.3, Iron - 33, TIBC-196, %saturation-16.8. * Patient was continuing on IV Venofer 200mg. * LDH-318 * Occult blood stool test was negative * GI was consulted for suspected GI bleed for cause of anemia. * Hematology was consulted, will follow their recommendations. ATTESTATION BY PHYSICIAN I have seen and examined the patient. I reviewed the documentation, medical decision making, and treatment plan as noted by the resident physician above. I agree with the findings and plan of care. NICK OMER MD, SHAJI MD Mar 03, 2025 15:27
== END 2025-03-02 19:14 | disposition home or self-care (01) ==
LOC: EDH 19:49 → INTOOBSV 03-01 01:04 → EDHIP 03-01 01:04 → UNDOADMOB 03-01 01:04 → 3BH 03-01 03:47 → EDHIP 03-01 03:57 → 3BH 03-02 16:50
PROVIDERS: ADMIT Internal Medicine; ATTEND Internal Medicine
DX: D50.9 Iron deficiency anemia, unspecified (principal); E11.65 Type 2 diabetes mellitus with hyperglycemia; R07.89 Other chest pain; E11.51 Type 2 diabetes mellitus with diabetic peripheral angiopathy without gangrene; E78.00 Pure hypercholesterolemia, unspecified; M19.90 Unspecified osteoarthritis, unspecified site; R00.2 Palpitations; K76.9 Liver disease, unspecified; Z96.611 Presence of right artificial shoulder joint; Z79.899 Other long term (current) drug therapy; Z98.890 Other specified postprocedural states
CPT/HCPCS: 99285; 82550; 84484 ×4; 80048 ×2; 85025 ×3; 71045; 93005; 96374; 96375; 84443; 83540; 83550; 83615; 80053; 83880; 85378; 86850; 86900; 86901; 86923; 82948 ×7; 36415 ×3; 93306; 93356; 96376; 82270; 81001; 71270; J1815 ×3; J1756 ×2; G0378 ×2; J2470; Q9967